=== PATIENT | male | born 1960 | race Caucasian/White ===

== ENCOUNTER 2019-01-20 12:59 | Inpatient (IN) | payer BC, OTHER ==
[~2019-01-20] VITALS: Ht 182.9 cm; Wt 112.9 kg
[2019-01-20 13:00] VITALS: BP 191/95
[2019-01-20 14:08] LABS: ABSOLUTE NEUTROPHILS 5.2 thou/uL (1.4-8.2); EOSINOPHILS 10.3 % (0.0-3.0); HEMATOCRIT 31.7 % (42.0-52.0); HEMOGLOBIN 11.1 gm/dL (14.0-18.0); MCH 31.7 pg (26.0-34.0); MCHC 35.1 g/dL (28.0-37.0); MCV 90.3 fL (80.0-100.0); PLATELET COUNT 280 thou/uL (150-400); POLYS 69.7 % (36.0-66.0); RBC 3.51 mil/uL (4.50-6.00); RDW 12.9 % (10.5-14.5); WBC 7.5 thou/uL (4.0-11.0)
[2019-01-20 14:15] LABS: CALCIUM 7.5 mg/dL (8.5-10.1); CREATININE 6.3 mg/dL (0.7-1.3)
[2019-01-20 14:21] LABS: ALBUMIN 2.2 g/dL (3.4-5.0); TOTAL BILIRUBIN 0.3 mg/dL (<0.1-1.0); TOTAL PROTEIN 5.6 g/dL (6.4-8.2)
[2019-01-20] MEDS ORDERED: BISOPROLOL FUMA10 MG PO (14:27)
[2019-01-20] MEDS ORDERED: TORSEMIDE20 MG PO (14:27)
[2019-01-20] MEDS ORDERED: SYNTHROID50 MCG PO (14:27)
[2019-01-20] MEDS ORDERED: PRAVACHOL40 MG PO (14:28)
[2019-01-20] MEDS ORDERED: POTASSIUM20 PO (14:28)
[2019-01-20] MEDS ORDERED: COZAAR 25 MG TA25 M1 PO (14:28)
[2019-01-20] MEDS ORDERED: CYCLOSPORINE PO (14:29)
[2019-01-20 14:55] VITALS: BP 186/98
[2019-01-20 16:15] VITALS: BP 172/97
[2019-01-20] MEDS ORDERED: DEMADEX20 MG (16:47)
[2019-01-20] MEDS ORDERED: DEMADEX20 MG PO (16:47)
[2019-01-20] MEDS ORDERED: COZAAR 50 MG TA50 M1 PO (16:48)
[2019-01-20] MEDS ORDERED: CYCLOSPORINE50 MG (16:49)
[2019-01-20 18:16] VITALS: BP 190/92
--- NOTE | 2019-01-20 18:27 | NUR ---
ASSUMED CARE AT 1700, SHIFT ASSESSMENT AND ADMISSION DONE, BP ELEVATED. DR PEPPER INFORMED, ORDER GIVEN FOR A DOSE OF LOSARTAN, ADMINSTERED. UP WITH STANDBY, USES URINAL. ON LASIX DRIP. WILL CONTINUE TO ASSESS AND ASSIST WITH ADLs NEEDED.
[2019-01-20 18:44] VITALS: BP 189/107
[2019-01-20 20:35] VITALS: BP 184/108
[2019-01-20 21:29] LABS: URINE BILIRUBIN NEGATIVE (Negative); URINE BLOOD 2+ (Negative); URINE CLARITY CLEAR; URINE COLOR YELLOW; URINE GLUCOSE-RANDOM* 2+ (Negative); URINE KETONES NEGATIVE (Negative); URINE LEUKOCYTES NEGATIVE (Negative); URINE NITRITE NEGATIVE (Negative); URINE PROTEIN (DIPSTICK) 3+ (Negative); URINE UROBILINOGEN 0.2 E.U./dl (0.2-1.0)
[2019-01-20 21:43] LABS: CASTS None Seen /LPF (None Seen); CRYSTALS None Seen /LPF (None Seen); SQUAMOUS 0-3 Few /LPF (0-3); URINE WBC None Seen /HPF (0-5)
[2019-01-20 21:44] LABS: BACTERIA 1-9 Few /HPF (None Seen); URINE RBC 0-2 Rare /HPF (0-2)
[2019-01-21 00:04] VITALS: BP 190/114
[2019-01-21 05:11] LABS: HEMATOCRIT 30.1 % (42.0-52.0); HEMOGLOBIN 10.4 gm/dL (14.0-18.0); MCH 31.6 pg (26.0-34.0); MCHC 34.5 g/dL (28.0-37.0); MCV 91.7 fL (80.0-100.0); RBC 3.29 mil/uL (4.50-6.00); RDW 13.4 % (10.5-14.5); WBC 5.5 thou/uL (4.0-11.0)
[2019-01-21 05:13] LABS: CALCIUM 7.7 mg/dL (8.5-10.1); CREATININE 6.4 mg/dL (0.7-1.3)
[2019-01-21 05:17] VITALS: BP 173/108
[2019-01-21 05:19] LABS: POTASSIUM 2.7 mmol/L (3.5-5.1)
--- NOTE | 2019-01-21 07:33 | NUR ---
Patient up ad elpidio with IV pole to bathroom. No SOB noted. Patient remains on room air. No nausea or vomiting reported. Patient remains swollen in bilateral lower extremities with 1+ to 2+ edema in ankles and feet. Nonpitting edema in lower extremities. Patient states that he feels swollen but not in pain, and that his extremities don't hurt. Lasix gtt remains infusing at 10 mg/hr. Patient's potassium came back 2.[address] Hilliard paged 3 times. Provider called back with orders given. Dr. Hilliard also updated on patients high blood pressures throughout the night and gave additional orders for the issue. Patient making partial progress toward plan of care goals at this time.
[2019-01-21 12:48] VITALS: BP 192/89
[2019-01-21 16:42] VITALS: BP 172/104
[2019-01-21] MEDS ORDERED: CHILDREN'S ASPI81 M1 PO (19:31)
--- NOTE | 2019-01-21 19:41 | NUR ---
PT DIURESISING WELL...LASIX GTT...BP REMAINS HIGH...MEDS ORDERED...
[2019-01-21 20:04] VITALS: BP 177/105
[2019-01-22] VITALS (10 sets, daily range): BP systolic 129–189; BP diastolic 74–114
--- NOTE | 2019-01-22 04:19 | NUR ---
PATIENT IS PROGRESSING IN HIS CARE PLAN. VITAL SIGNS STABLE WITH PATIENT HAVING NO COMPLAINTS OF PAIN OR NAUSEA. PATIENT IS FULLY ALERT AND ORIENTED AND ABLE TO CALL APPROPRIATELY FOR REQUESTS. UP AD CATRACIHTO THROUGHOUT SHIFT, PATIENT IS NOT A FALL RISK AND APPEARS STRONG AND BALANCED WHEN WALKING. PATIENT HAS BEEN KEPT NPO IN ANTICIPATION OF TODAYS POSSIBLE PROCEDURE. DOCTOR EVGENY CONTACTED EARLY IN SHIFT IN REGARDS TO LOW K+ AND NURSE IS TO MONITOR MORNING LABS FOR POSSIBLE REPLACEMENT. CONTINUE PLAN OF CARE.
[2019-01-22 05:28] LABS: HEMATOCRIT 29.4 % (42.0-52.0); HEMOGLOBIN 10.2 gm/dL (14.0-18.0); MCH 31.8 pg (26.0-34.0); MCHC 34.7 g/dL (28.0-37.0); MCV 91.6 fL (80.0-100.0); RBC 3.21 mil/uL (4.50-6.00); RDW 13.3 % (10.5-14.5); WBC 5.6 thou/uL (4.0-11.0)
[2019-01-22 05:39] LABS: ALBUMIN 1.9 g/dL (3.4-5.0); CALCIUM 7.9 mg/dL (8.5-10.1); CREATININE 6.3 mg/dL (0.7-1.3); PHOSPHORUS 6.1 mg/dL (2.5-4.9); POTASSIUM 3.1 mmol/L (3.5-5.1)
--- NOTE | 2019-01-22 14:33 | NUR ---
ASSESSMENT: CM REVIEWED CHART AND MET WITH PATIENT AT THE BEDSIDE. PT IS ALERT AND ORIENTED X4. PT WAS ADMITTED WITH HEAVENLY. PT IS ON LASIX GTT AND GOT A KIDNEY BIOPSY TODAY. PT REPORTS HE LIVES IN A HOUSE WITH HIS . PT REPORTS NO STEPS TO ENTER THE HOME OR ONCE INSIDE. PT REPORTS BEING FULLY INDEPENDENT WITH ADLS AND AMBULATION. PT DENIES HAVING HH IN THE PAST OR BEING TO A SNF. PT REPORTS HE HAS NO DME OR THE NEED FOR IT. CM DISCUSSED ROLE. PT DOES NOT ANTICIPATE HAVING ANY NEEDS AT DISCHARGE.
--- NOTE | 2019-01-22 18:21 | NUR ---
ASSUMED PATIENT CARE AT 0700. A/O X4. PLEASANT. PATIENT HAD LAFT KIDNEY BIOPSY TOLERATED WELL. BP STILL HIGH. DENIES PAIN. ON LASIX GTT. SLOWLY TOWARDS POC GOALS.
[2019-01-23] VITALS (7 sets, daily range): BP systolic 148–180; BP diastolic 81–103
--- NOTE | 2019-01-23 03:36 | NUR ---
PATIENT IS ALERT AND ORIENTED. PATIENT IS ON LASIX DRIP. POTASSIUM REPLACED. PATIENT UP AD CATRACHITO. PATIENTS LBM WAS THE 7TH. PATIENT IS NSR ON TELE. PATIENTS DENIES PAIN. PATIENT BIOPSY SITE INTACT. PATIENT IS RESTING COMFORTABLY IN BED. WCM.
[2019-01-23 05:24] LABS: HEMATOCRIT 35.2 % (42.0-52.0); HEMOGLOBIN 11.9 gm/dL (14.0-18.0); MCH 31.3 pg (26.0-34.0); MCHC 33.9 g/dL (28.0-37.0); MCV 92.5 fL (80.0-100.0); RBC 3.8 mil/uL (4.50-6.00); RDW 13.3 % (10.5-14.5); WBC 6.6 thou/uL (4.0-11.0)
[2019-01-23 05:31] LABS: ALBUMIN 2.4 g/dL (3.4-5.0); CALCIUM 7.6 mg/dL (8.5-10.1); CREATININE 5.9 mg/dL (0.7-1.3); PHOSPHORUS 5.5 mg/dL (2.5-4.9); POTASSIUM 3.4 mmol/L (3.5-5.1)
--- NOTE | 2019-01-23 07:23 | HC ---
[facility] [place] [address] CONSULTATION Name: DULCE SUH Room #: 363-P [facility] IN M.R.#: [id number] Admission: 01/20/19 ������������������ Attend Phys: Chino Hilliard MD, FAAF Discharge: ������������������ Date of : 60 Report #: [id number] THIS REPORT FOR: //name// CC: Chino Hilliard REASON FOR CONSULTATION: Chronic kidney disease, acute kidney injury. REASON FOR PRESENTATION: Swelling, failure of outpatient diuretic therapy. 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 He has chronic kidney disease with a baseline creatinine of around 3. He had suffered from long-term side effect of cyclosporine including hyperlipidemia, hypertension and attempt to wean him off has completely failed. 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 The one that was done with me about a year ago revealed no significant interstitial fibrosis. He had been gaining weight and reported to me in the clinic a couple of months ago that his edema has been getting worse and his blood pressure is out of control. We attempted to diurese him in an outpatient setting; however, this has failed. Thus, he presented for intravenous diuresis and further management of his lower extremity swelling along with addressing his worsening kidney function. As I have stated, his baseline creatinine is around 3. Most recently and as of yesterday, his creatinine was all the way up to 6.4. PAST MEDICAL HISTORY: 1. Hypertension. 2. Hyperlipidemia. 3. Membranous nephropathy. 4. Chronic kidney disease. 5. Gynecomastia related to spironolactone. 6. long-term immunosuppressive medication usage. MEDICATIONS: 1. Torsemide. 2. Losartan. 3. Cyclosporine. 4. Levothyroxine. 5. Pravastatin. 6. Potassium. SOCIAL HISTORY: He lives with his . No drug or alcohol abuse. ALLERGIES: LIPITOR. REVIEW OF SYSTEMS: GENERAL: Significant for weight gain. [facility] [address] [place] [address] CONSULTATION Name: DULCE SUH J Room #: 363-P [facility] IN M.R.#: [id number] Admission: 01/20/19 ������������������ Attend Phys: Chino Hilliard MD, FAAF Discharge: ������������������ Date of : 60 Report #: [id number] CARDIOVASCULAR: No chest pain; however, he does have dyspnea on exertion. PULMONARY: No cough or hemoptysis. GASTROINTESTINAL: No nausea or vomiting. GENITOURINARY: No frequency or urgency. SKIN: No rash or ulcerations. NEUROLOGICAL: No headache, no dizziness. FAMILY HISTORY: No known family history of nephrotic syndrome. PHYSICAL EXAMINATION: GENERAL: Alert, oriented, in no apparent distress. VITAL SIGNS: Blood pressure 178/96. He is afebrile. HEAD AND NECK: No jugular venous distention. CHEST: No crackles. CARDIOVASCULAR: No rub. ABDOMEN: Soft, nontender. LOWER EXTREMITIES: +3 edema. ASSESSMENT AND IMPRESSION: 1. Hypertension. 2. Acute kidney injury. 3. Nephrotic syndrome. 4. Long-term immune suppressive medication. PLAN: 1. I had a lengthy discussion with the patient regarding the worsening of his kidney function and edema. 2. As for now, he is agreeable to continue with the IV diuresis. 3. Fluid and salt restriction. 4. We will schedule the patient for a kidney biopsy in the morning given the significant worsening of his kidney function. ��������������������������������������������� <ELECTRONICALLY SIGNED> ���������������������������������������� By: Jerica Ryder MD ��������������������������������������������� 01/23/19 0723 [id number] Jerica Ryder MD /nt
--- NOTE | 2019-01-24 03:54 | NUR ---
PT MAKING SLOW PROGRESS TOWARDS GOALS. PT REPORTING THAT HE IS ONLY TAKING SIPS OF WATER. DID START THE NIGHT WITH HALF ONLY A HALF PITCHER OF WATER AND THERE APPEARS TO BE 1/4 REMAINING. NOTED UOP 1550ML, 227ML IV AND 240ML PO. ONLY C/O CONSTIPATION AND PT WAS REPORTEDLY GIVEN MIRALAX DURING THE DAY TIME. DOES STATE HE HAS BEEN PASSING GAS. AMBULATION ENCOURAGED DURING DAY TIME HOURS. PT IS WEARING BL SCD AND RECEIVING SUBCU HEPARIN PER ORDERS.
[2019-01-24 04:30] VITALS: BP 147/100
[2019-01-24 06:10] LABS: CALCIUM 7.9 mg/dL (8.5-10.1); CREATININE 5.7 mg/dL (0.7-1.3); PHOSPHORUS 5.1 mg/dL (2.5-4.9); POTASSIUM 3.2 mmol/L (3.5-5.1)
[2019-01-24 08:44] VITALS: BP 137/89
[2019-01-24 13:05] VITALS: BP 144/87
[2019-01-24 17:07] VITALS: BP 140/92
--- NOTE | 2019-01-24 18:45 | NUR ---
PATIENT MAKING GOOD PROGRESS TOWARDS DISCHARGE GOALS. HE AMBULATES AND PARTICIPATE IN CARE. NO COMPLAIN OF PAIN NOTED. RESPIRATIONS ARE NON LABORED. CONT ON LASIX DRIP. PLEASANT WITH CARE. WILL CONT WITH PLAN OF CARE.
[2019-01-24 20:20] VITALS: BP 150/93
[2019-01-25 04:12] LABS: CALCIUM 7.8 mg/dL (8.5-10.1); CREATININE 5.8 mg/dL (0.7-1.3); POTASSIUM 3.6 mmol/L (3.5-5.1)
[2019-01-25 04:13] LABS: ABSOLUTE NEUTROPHILS 2.4 thou/uL (1.4-8.2); BASOPHILS 1.5 % (0.0-2.0); EOSINOPHILS 11.1 % (0.0-3.0); HEMATOCRIT 30.6 % (42.0-52.0); HEMOGLOBIN 10.6 gm/dL (14.0-18.0); LYMPHOCYTES 21.9 % (24.0-44.0); MCH 32.2 pg (26.0-34.0); MCHC 34.7 g/dL (28.0-37.0); MCV 92.8 fL (80.0-100.0); MONOCYTES 7.9 % (1.0-8.0); PLATELET COUNT 241 thou/uL (150-400); POLYS 57.6 % (36.0-66.0); RBC 3.29 mil/uL (4.50-6.00); RDW 13.5 % (10.5-14.5); WBC 4.1 thou/uL (4.0-11.0)
[2019-01-25 04:20] VITALS: BP 143/92
--- NOTE | 2019-01-25 06:51 | NUR ---
PT AMBULATES WITHOUT ASSISTANCE AND IS CONSIDERED AD CATRACHITO TO BATHROOM. POC WITH IV LASIX DRIP AT 10ML/HR. SCD'S BEING WORN. PT ONLY REQUEST WAS FOR STOOL SOFTNER. PT SLEPT COMFORTABLY ALL EVENING. HOURLY ROUNDING.
[2019-01-25 07:35] VITALS: BP 132/85
--- NOTE | 2019-01-25 13:46 | NUR ---
SW reviewed chart and spoke with nursing. Pt remains on lasix gtt at this time. Pt is ambulating independently in his room. Plan is for pt to discharge home when medically stable. No SW needs identified at this time, but is available to assist should needs arise.
[2019-01-25 18:04] VITALS: BP 125/84
--- NOTE | 2019-01-25 19:45 | NUR ---
CONT ON LASIC DRIP AND URINATES IN BATHROOM. DAILY WEIGHTS. HE IS ALERT ORIENTED X4. PLEASANT. WILL CONT WITH PLAN OF CARE.
[2019-01-25 20:01] VITALS: BP 136/81
[2019-01-25 23:53] VITALS: BP 132/77
[2019-01-26] VITALS (9 sets, daily range): BP systolic 125–132; BP diastolic 60–70
--- NOTE | 2019-01-26 06:41 | NUR ---
ASSUMED PT CARE AROUND 1900. A&OX4. DENIES ANY PAIN OR SOA. PT SLEPT MOST OF THE NIGHT. RESP EVEN AND UNLABORED. UP AD CATRACHITO AROUND THE ROOM. LASIX GTT INFUSING ORDERED. VSS. PROGRESSING SLOWLY TOWARD POC GOALS. WILL CONTINUE TO MONITOR FURTHER.
[2019-01-26 10:22] LABS: ALBUMIN 2.1 g/dL (3.4-5.0); CALCIUM 7.9 mg/dL (8.5-10.1); CREATININE 5.9 mg/dL (0.7-1.3); PHOSPHORUS 4.9 mg/dL (2.5-4.9); POTASSIUM 3.8 mmol/L (3.5-5.1)
[2019-01-26] MEDS ORDERED: SYNTHROID75 MCG PO (12:41)
[2019-01-26] MEDS ORDERED: METOLAZONE 5 MG5 MG PO (12:41)
[2019-01-26] MEDS ORDERED: TORSEMIDE20 MG PO (12:41)
[2019-01-26] MEDS ORDERED: CLONIDINE HCL0.3 M3 PO (12:41)
--- NOTE | 2019-01-26 17:06 | PATH ---
[facility] [address] [place] [address] PATHOLOGY RPT PROCEDURE Name: DULCE SUH Room #: 363-P [facility] IN M.R.#: [id number] ������������������ Admission: 01/20/19 ������������������ Date of : 60 Discharge: Report #: [id number] Path Case #: [id number] [facility] Accession Number: [id number] . 01 Material submitted: . renal pelvis - LT RENAL BX. Modifiers: right . 01 Clinical history: . Swelling of legs, acute on chronic renal failure . 02 Diagnosis: Special studies report received from [facility], [id number] [place] [address], [place] [address], on case [id number], labeled with their number [id number], dated 01/23/2019. . Specimen submitted: By Jerica Ryder MD For Kidney, biopsy . DIAGNOSIS: . Limited Biopsy - Predominately Renal Medullar. . 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 . Acute Tubular Injury. . Global Glomerulosclerosis (09/17). . Arteriosclerosis, Mild. . 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 . Gross Description: Received from [facility] via [employer] ([place], [place]) are two specimen bottles; one bottle contains formalin and the other contains Aram's fixative. The bottles are labeled with the patient's name (Dulce Suh). . Received in formalin are three pieces of saenz tissue measuring 1.7 x 0.1 x 0.1 cm (fatty ends, dissected), 0.5 x 0.1 x 0.1 cm (fatty ends), and one approximately 1.0 x 0.1 x 0.1 cm (curled, fatty ends). Two pieces are submitted for electron microscopy and the remainder of the tissue is submitted in its entirety for light microscopy. . [address] [address] PATHOLOGY RPT PROCEDURE Name: DULCE SUH Room #: 363-P ADM IN M.R.#: [id number] ������������������ Admission: 01/20/19 ������������������ Date of : 60 Discharge: Report #: [id number] Path Case #: [id number] Received in Aram's fixative are two pieces of bloody tissue measuring 1.0 x 0.1 x 0.1 cm (fatty ends) and 1.6 x 0.1 x 0.1 cm (fatty ends). The specimen is submitted in its entirety for immunofluorescence microscopy. . Microscopic Description: LIGHT MICROSCOPY: . Multiple cores of renal parenchyma are present for evaluation represented almost entirely by medulla. No significant renal cortex is present. There is a single globally sclerotic glomerulus and two partially intact and detached glomeruli. The glomeruli show prominent thickening of the capillary loops with mottling on silver stain. There is mesangial matrix expansion. There is no definitive endocapillary hypercellularity, fibrinoid necrosis, or crescent formation. There is diffuse mild interstitial edema with focal interstitial. Foam cells. There is a minimal interstitial mononuclear inflammatory infiltrate. The tubular epithelium of the outer medullar and corticomedullary junction shows cytoplasmic swelling and vacuolization with reactive nuclear changes. There are no atypical tubular casts. There is minimal arteriolar hyalinosis. Arteries show mild intimal fibrosis. There is no arteritis present. A Congo red stain for amyloid is negative. Toluidine blue-stained sections prepared for electron microscopy show renal medulla only. . Material from the patient's previous biopsies ([id number] and [id number]) was reviewed concurrently. . Standard of care requirements for proper analysis of renal biopsies mandates serial sections, and PAS, Angelo silver, trichrome and SMMT stains at multiple levels. PAS stains are used to evaluate various aspects of the glomerular, tubular, and vascular basement membranes. Angelo silver stains are used to evaluate thickening, reduplication, "spiking" or "bubbling" of the glomerular basement membrane. Toluidine blue stained sections highlight glomerular basement membranes and demonstrates unusual types of deposits. It also reveals details of tubular epithelial cells and aids in the analysis of vascular lesions. Marcell trichrome stains are used to evaluate interstitial fibrosis and basement membrane deposits. The SMMT stain helps evaluate basement membrane changes, immune deposits and tubulointerstitial scarring. Controls are routinely run on all special stains and are verified for acceptability. A review of the technical quality of routine slides is made before results are reported. . . IMMUNOFLUORESCENCE: Two cores of renal medulla are present for evaluation. The sections are stained for IgG, IgM, IgA, C3, C1q, albumin, fibrinogen, and kappa and lambda light chains. No cortex or glomeruli are present. Lozano and lambda stain equally throughout the tubulointerstitium [address] [address] PATHOLOGY RPT PROCEDURE Name: DULCE SUH Room #: 363-P ADM IN M.R.#: [id number] ������������������ Admission: 01/20/19 ������������������ Date of : 60 Discharge: Report #: [id number] Path Case #: [id number] . Immunofluorescence for IgG and kappa and lambda light chains is performed on the paraffin-embedded tissue containing two intact glomeruli. The glomeruli show global granular capillary loop staining by IgG (3+) and kappa (3+) and lambda (3+) light chains. Lozano and lambda stain equally throughout the tubulointerstitium. . Positive and negative controls are run on all immunofluorescent stains and are verified for acceptability before results are reported. Internal antigens serve as positive controls. . ELECTRON MICROSCOPY: Two blocks are prepared. No intact glomeruli are available for ultrastructural examination. . Special procedures including immunofluorescence and electron microscopy correlate with the light microscopy findings. . Note: Some of the tests reported here may have been developed and performance characteristics determined by [facility]. They have not been cleared or approved by the U.S. Food and Drug Administration (FDA). The FDA does not require this test to go through premarket FDA review. This test is used for clinical purposes. It should not be regarded as investigational or for research. [facility] is certified under the Clinical Laboratory Improvement Amendments of 1988 (CLIA) as qualified to perform high complexity clinical laboratory testing. . Physician/Physician's office called on 01/25/2019 at 3:45 PM Central. . *I have reviewed the clinical history, the pertinent gross findings, all microscopic materials, discussed the case with the clinician when appropriate, and have rendered the final diagnosis. . . Final Diagnosis performed by Sabrina Kenyon M.D. Electronically signed 01/25/2019 5:44:20 PM . . A complete copy of the report is on file. . Professional and technical services performed by [facility] at [address], [place] [address], [place], [address]. . (AMJ 01/26/2019) . AZJ/01/26/[address] [address] PATHOLOGY RPT PROCEDURE Name: DULCE SUH Room #: 363-P [facility] IN ..#: [id number] ������������������ Admission: 01/20/19 ������������������ Date of : 60 Discharge: Report #: [id number] Path Case #: [id number] . 02 Electronically signed: . Jeanne Clements MD, Pathologist NPI- [id number] . 01 Gross description: . The specimen is received in formalin, labeled "Dulce Suh left renal biopsy general". Received are three needle cores of pale saenz soft tissue ranging in length from 0.7 to 1.2 cm, with each measuring 0.1 cm in diameter. The specimen is forwarded to an outside laboratory for further processing. . Also received is a container of Aram's fixative, labeled "Dulce Suh left renal biopsy general". Received are three needle cores of pale saenz soft tissue ranging in length from 0.5 to 1.5 cm, with each measuring 0.1 cm in diameter. The specimen is forwarded to an outside laboratory for further processing. (CAA; 01/22/2019) QAC/QAC . 02 Pathologist provided ICD-10: N17.9, N26.9, N05.2 . 02 CPT . 913641 Specimen Comment: A courtesy copy of this report has been sent to Specimen Comment: [phone], , . Specimen Comment: Report sent to ,DR PEPPER / DR RYDER Performed at: [address], [place], [place] [id number] MD Miguel Angel Amezquita MD Phone: [phone] Performed at: [address] [id number] MD Jeanne Clements MD Phone: [phone]
--- NOTE | 2019-01-26 18:09 | NUR ---
PT DISCHARGED TO HOME WITH SELF CARE...VSS..RX GIVEN...WILL FOLLOW UP WITH DR COATES FOR LABS IN 1 WEEK AND FOLLOW UP IN [address] COATES FOR LABs and offive visit on march 02 at 2;30
== END 2019-01-26 18:15 | disposition home or self-care (01) | DRG 699 ==
LOC: ER 12:59 → 3W 14:29 → EROBS 14:29 → 3W 16:27
PROVIDERS: Hospitalist; Internal Medicine; Physician Assistant; ADMIT Family Medicine
DX: N04.2 Nephrotic syndrome with diffuse membranous glomerulonephritis (principal); I13.0 Hypertensive heart and chronic kidney disease with heart failure and stage 1 through stage 4 chronic kidney disease, or unspecified chronic kidney disease; E78.00 Pure hypercholesterolemia, unspecified; N17.9 Acute kidney failure, unspecified; E03.9 Hypothyroidism, unspecified; N18.9 Chronic kidney disease, unspecified; E78.5 Hyperlipidemia, unspecified; E87.6 Hypokalemia; D64.9 Anemia, unspecified; K59.00 Constipation, unspecified; Z88.8 Allergy status to other drugs, medicaments and biological substances; Z79.899 Other long term (current) drug therapy
CPT/HCPCS: 10879

== ENCOUNTER 2020-10-26 10:47 | Inpatient (IN) | payer BC, OTHER ==
[2020-10-26] VITALS (24 sets, daily range): BP systolic 120–166; BP diastolic 71–104
[~2020-10-26] VITALS: Ht 188 cm; Wt 103.0 kg
--- NOTE | ~2020-10-26 | HC ---
[facility] [place] [address] CONSULTATION Name: DULCE SUH Room #: 240-P ADM IN M.R.#: [id number] Admission: 10/26/20 Attend Phys: Chino Hilliard MD, FAA Discharge: Date of : 60 Report #: [id number] THIS REPORT FOR: cc: Chino Hilliard MD FAA FACE Chino Hilliard MD FAA FACE Jerica Ryder MD ~ DATE OF SERVICE: 10/27/2020 REASON FOR PRESENTATION: Weakness, lethargy, mental status changes. REASON FOR CONSULTATION: Acute kidney injury on top of chronic kidney disease. HISTORY OF PRESENT ILLNESS: This is obtained from the and the medical record. The patient is currently very lethargic. He is a 59-year-old with history of membranous nephropathy, chronic kidney disease with a baseline creatinine of around 4. He received few courses of rituximab for his membranous nephropathy few months ago. He has not been feeling well for the last few days and had significant nausea, vomiting, abdominal pain, with very poor oral intake. He presented to further evaluate and was found to have COVID-19 infection. He has significant lobar pneumonia. He also had significant lab abnormalities with acute kidney injury, anion gap acidosis, elevated lipase. I was consulted to manage his acute kidney injury. PAST MEDICAL HISTORY: Extensive and includes the followin. Hypertension. 2. Hyperlipidemia. 3. Membranous nephropathy, status post rituximab usage. Long-term immunosuppressive medication usage with cyclosporine in the past. MEDICATIONS: 1. Torsemide. 2. Losartan. 3. Aspirin. 4. Pravastatin. 5. Levothyroxine. He is not taking cyclosporine anymore. REVIEW OF SYSTEMS: Currently unobtainable given the patient's current mental status. ALLERGIES: LISTED LATEX. FAMILY HISTORY: Hypertension. SOCIAL HISTORY: He continued to work few months ago from home for ____ company. [facility] [address] [place] [address] CONSULTATION Name: DULCE SUH Room #: 240-P [facility] IN ..#: [id number] Admission: 10/26/20 Attend Phys: Chino Hilliard MD, FAAF Discharge: Date of : 60 Report #: [id number] He is . PHYSICAL EXAMINATION: GENERAL: Confused, lethargic. VITAL SIGNS: Blood pressure 135/83. HEAD AND NECK: No jugular venous distention. CHEST: Crackles bilaterally. CARDIOVASCULAR: No rub. ABDOMEN: Soft. EXTREMITIES: Lower extremities, no edema. LABORATORY DATA: Sodium from yesterday 140, BUN was 177, creatinine was 19. Lipase is down from 2467 to 2166. Abdominal ultrasound revealed no acute issues. Chest x-ray (lobar pneumonia). IMPRESSION AND PLAN: 1. Acute kidney injury. 2. Chronic kidney disease. 3. Membranous nephropathy with long-term immunosuppressive medications, currently undergoing rituximab infusion few months ago. This was held due to the current COVID-19 status. 4. Anion-gap acidosis. 5. Elevated lipase. 6. Emergent hemodialysis was done for the patient yesterday. Second dialysis session will be done today and next dialysis session will be done tomorrow. 7. Continue current therapy for his COVID-19. 8. Discontinue all blood pressure medication. 9. Monitor renal function, daily electrolytes. We will continue to follow. By: 0748 0834 Jerica Ryder MD /nt
[~2020-10-26 10:47] MED LIST: BISOPROLOL FUMA10 MG PO; CHILDREN'S ASPI81 M1 PO; CLONIDINE HCL0.3 M3 PO; COZAAR 25 MG TA25 M1 PO; COZAAR 50 MG TA50 M1 PO; CYCLOSPORINE PO; CYCLOSPORINE50 MG; DEMADEX20 MG; DEMADEX20 MG PO; METOLAZONE 5 MG5 MG PO; POTASSIUM20 PO; PRAVACHOL40 MG PO; SYNTHROID50 MCG PO; SYNTHROID75 MCG PO; TORSEMIDE20 MG PO
[2020-10-26 11:17] LABS: ABSOLUTE NEUTROPHILS 11.8 thou/uL (1.4-8.2); BASOPHILS 0.3 % (0.0-2.0); EOSINOPHILS 0.1 % (0.0-3.0); HEMATOCRIT 33.7 % (42.0-52.0); HEMOGLOBIN 11.3 gm/dL (14.0-18.0); LYMPHOCYTES 4.1 % (24.0-44.0); MCH 31.7 pg (26.0-34.0); MCHC 33.4 g/dL (28.0-37.0); MONOCYTES 3.1 % (1.0-8.0); PLATELET COUNT 348 thou/uL (150-400); POLYS 92.4 % (36.0-66.0); RBC 3.55 mil/uL (4.50-6.00); RDW 13.8 % (10.5-14.5); WBC 12.8 thou/uL (4.0-11.0)
[2020-10-26 11:26] LABS: CALCIUM 8.4 mg/dL (8.5-10.1); CREATININE 19.8 mg/dL (0.7-1.3)
[2020-10-26 11:29] LABS: ALBUMIN 2.5 g/dL (3.4-5.0); TOTAL BILIRUBIN 0.5 mg/dL (0.2-1.0); TOTAL PROTEIN 7.3 g/dL (6.4-8.2)
[2020-10-26 11:32] LABS: DIRECT BILIRUBIN 0.1 mg/dL (<0.1-0.2)
--- NOTE | 2020-10-26 11:52 | NUR ---
RETURNED TO ROOM FROM CT
[2020-10-26 12:01] LABS: HCO3 10.9 mmol/L (22.0-26.0); PCO2 26.4 mmHg (35.0-45.0); PO2 67.5 mmHg (80.0-100.0); sO2 90.6 % (92.0-98.0)
[2020-10-26 12:02] LABS: pH 7.235 (7.360-7.450)
[2020-10-26 13:23] LABS: CALCIUM 7.6 mg/dL (8.5-10.1); POTASSIUM 4.1 mmol/L (3.5-5.1)
[2020-10-26 13:29] LABS: APTT 30.9 Seconds (24.5-32.8); D-DIMER 3.44 ug/mLFEU (0.19-0.50); INR 1.2; PROTIME 13.2 Seconds (9.3-11.4)
--- NOTE | 2020-10-26 14:48 | NUR ---
RETURNED FROM IR. NO CHANGES STABLE AT THIS TIME
--- NOTE | 2020-10-26 15:57 | EKG ---
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 : 1960 Requested By: Reese White Order Number: [id number] MD: Chris Powers Measurements Intervals [place] Rate: 127 P: TN: QRS: -52 QRSD: 149 T: 24 QT: 322 QTc: 469 Interpretive Statements Significant artifact, suspect sinus tachycardia Nonspecific IVCD with LAD Inferior infarct, old Lateral leads are also involved No previous ECG available for comparison Electronically Signed On 10-26-2020 15:57:09 ADVERTISING STRATEGIST by Chris Powers [email or web address] <ELECTRONICALLY SIGNED> By: Chris Powers MD, [facility] 10/26/20 1557 D: [id number] 26 Chris Powers MD, FACC /EPI
--- NOTE | 2020-10-26 18:02 | NUR ---
Per Dr. Hilliard, original covid positive test was October 07.
--- NOTE | 2020-10-26 19:40 | NUR ---
10/26/20 PATIENT ADMIT FROM ICU AT 1800. ARRIVED ON 4 L O2 VIA NASAL CANNULA. PIV IN PLACE ON RIGHT ARM. TEMP HD CATH IN PLACE RIGHT IJ. DR. PEPPER AT BEDSIDE, CONSULTS PLACED TO ID AND CRITICAL CARE. PATIENT ABLE TO APPROPRIATELY ANSWER ORIENTATION QUESTIONS BUT LETHARGIC, FALLING ASLEEP WHILE TALKING. HEMODIALYSIS STARTED BY HD NURSE. PATIENT IN AFIB ON NETWORK DEVELOPMENT COORDINATOR. PATIENT BELONGINGS INCLUDE; SHIRT, PANTS, SOCKS, SHOES. WILL CONTINUE TO MONITOR.
--- NOTE | 2020-10-26 23:27 | NUR ---
REPORT RECEIVED. PATIENT GETTING HD. A/O TO PERSON. DENIES SOA, PAIN, N/V. CALLED DR AKINS AFTER DIALYSIS. ORDER TO STOP FLUID IV GIVEN. PATIENT REMAINS RESTLESS IN BED. DR WILLIS CALLED AND UPDATED. DR PEPPER PAGED AND WAITING FOR CALL BACK. PT CURRENTLY IN BED. REMAINS RESTLESS. WILL KEEP MONITORING
[2020-10-27] VITALS (85 sets, daily range): BP systolic 107–172; BP diastolic 64–117
[2020-10-27 03:17] LABS: URINE BILIRUBIN NEGATIVE (Negative); URINE BLOOD 3+ (Negative); URINE CLARITY SL CLOUDY; URINE COLOR YELLOW; URINE GLUCOSE-RANDOM* 1+ (Negative); URINE KETONES NEGATIVE (Negative); URINE LEUKOCYTES-REFLEX TRACE (Negative); URINE NITRITE-REFLEX NEGATIVE (Negative); URINE PROTEIN (DIPSTICK) 3+ (Negative); URINE SPECIFIC GRAVITY >= 1.030 (1.005-1.035); URINE UROBILINOGEN 0.2 E.U./dl (0.2-1.0)
[2020-10-27 03:26] LABS: MUCUS 0-3 Light strn/LPF (None Seen); SQUAMOUS None Seen /LPF (0-3)
[2020-10-27 03:27] LABS: AMORPHOUS URATES Moderate /LPF (None Seen); BACTERIA-REFLEX None Seen /HPF (None Seen); CRYSTALS None Seen /LPF (None Seen); HYALINE CASTS 0-3 Few /LPF (None Seen); URINE RBC 3-10 Few /HPF (0-2); URINE WBC-REFLEX 0-5 Rare /HPF (0-5)
[2020-10-27 04:01] LABS: ALBUMIN 2.2 g/dL (3.4-5.0); POTASSIUM 3.6 mmol/L (3.5-5.1); TOTAL BILIRUBIN 0.6 mg/dL (0.2-1.0)
[2020-10-27 04:05] LABS: CREATININE 12.6 mg/dL (0.7-1.3)
[2020-10-27 04:23] LABS: ABSOLUTE NEUTROPHILS 9.9 thou/uL (1.4-8.2); BASOPHILS 0.1 % (0.0-2.0); HEMATOCRIT 27.7 % (42.0-52.0); HEMOGLOBIN 9.5 gm/dL (14.0-18.0); LYMPHOCYTES 2.6 % (24.0-44.0); MCH 31.9 pg (26.0-34.0); MCHC 34.3 g/dL (28.0-37.0); MCV 93.1 fL (80.0-100.0); PLATELET COUNT 274 thou/uL (150-400); POLYS 95.3 % (36.0-66.0); RBC 2.98 mil/uL (4.50-6.00); RDW 13.5 % (10.5-14.5); WBC 10.4 thou/uL (4.0-11.0)
[2020-10-27 07:13] LABS: BE(vivo) -6.5 mmol/L (-2 to +3); HCO3 17.1 mmol/L (22.0-26.0); PCO2 27.9 mmHg (35.0-45.0); PO2 77.8 mmHg (80.0-100.0); pH 7.405 (7.360-7.450); sO2 95.8 % (92.0-98.0)
--- NOTE | 2020-10-27 13:20 | NUR ---
ASSESSMENT: CM REVIEWED CHART AND SPOKE WITH PTS SPOUSE KUNAL. PT TESTED POSITIVE FOR COVID 19 ON 10/07/20. SINCE THEN PT HAS BECOME MORE ILL, EXTREMELY DEBILITATED, MINIMALLY VERBAL, AND INCREASED COUGH PER REPORT. CM SPOKE WITH TO GATHER MORE INFORMATION. 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 SHE REPORTS THEY LIVE IN A SINGLE STORY HOME WITH NO STEPS TO ENTER. PT IS NORMALLY INDEPENDENT WITH ADLS AND AMBULATION. PT DOES NOT HAVE OXYGEN AT HOME AND IS CURRENTLY ON 4L. PT IS A NONDIALYSIS PATIENT BUT HAS HX OF RENAL DISEASE. HD WAS INITIATED HERE AT THIS TIME. PT IS ON IV ANBX AND CORTICOSTEROIDS. CM WILL CONTINUE TO FOLLOW TO ASSIST NEEDED.
--- NOTE | 2020-10-27 13:23 | NUR ---
PT IS PROGRESSING TOWARDS DISCHARGE, PT SEEN BY /DR.AL ASHLEY/ PT IS RECEIVING DIALYSIS TODAY, NO FLUIDS WILL BE TAKEN OFF THIS TIME. PT IS MORE ALERT PER NOC RN, PT IS AROUSABLE, IS WITH IT AOX4 HOEVER HE IS VERY DROWSY AND WILL FALL ASLEEP IN MID CONVO. NO SPECIFIC CONERNS/GOALS FROM THE PT TODAY. PT WAS ABLE TO TOLERATE PO APPLE JUICE BUT DID HAVE TO TAKE PILLS SLOWLY AND DID HAVE DIFFICULT TIME SWALLOWING/CATCHING UP TO HIS BREATH. WAS SEEN DESATTING TO LOW 90s AT A POINT. STILL ON 4L/NC, ANION GAP CLOSING PER AM SHIFT LABS, TEMPERATURE OF 98 ORAL SO FAR TODAY
--- NOTE | 2020-10-27 18:56 | HC ---
[facility] [place] [address] CONSULTATION Name: DULCE SUH Room #: 240-P ADM IN M.R.#: [id number] Admission: 10/26/20 Attend Phys: Chino Hililard MD, FAA Discharge: Date of : 60 Report #: [id number] THIS REPORT FOR: cc: Chino Hilliard MD [facility] Chino Hilliard MD [facility] Alexander Pate MD ~ DATE OF SERVICE: 10/26/2020 INFECTIOUS DISEASE CONSULTATION REASON FOR CONSULTATION: COVID-19 pneumonia. HISTORY OF PRESENT ILLNESS: The patient is 59 years old with membranous nephropathy and chronic renal failure, diagnosed with COVID-19 on 10/07/2020. He has had progressive shortness of breath over the last several days. He developed laryngitis and generalized weakness. He has had some odynophagia. He was delirious. Unable to give reasonable history. Review of medical record and discussion with nursing staff. On presentation to the Emergency Room, he was found to be in acute renal failure with a creatinine of 19 along with acute pancreatitis and lipase over 1999. He has required oxygen, now at 4 liters per nasal cannula. He has had intermittent nonproductive cough. Denies any alcohol use. He has been on cyclosporine for his membranous nephropathy. REVIEW OF SYSTEMS: A 14-point review of system was negative other than what has been described above. ALLERGIES: LASIX, ATORVASTATIN. MEDICATIONS: As noted on his MAR, having started on azithromycin, ceftriaxone. He is on clonidine, torsemide, metolazone, levothyroxine, losartan, cyclosporine, aspirin, bisoprolol, pravastatin, potassium. FAMILY HISTORY: No tuberculosis reported. SOCIAL HISTORY: Nonsmoker, with no significant alcohol intake. . PAST MEDICAL HISTORY: Hypertension, hyperlipidemia, membranous nephropathy, chronic kidney disease, gynecomastia. PHYSICAL EXAMINATION: GENERAL: Afebrile, hemodynamically stable, recently gotten off dialysis, has a right IJ temporary dialysis catheter in place. Obese. Hoarse voice. SKIN: Without rash or decubitus. No palpable adenopathy. EYES: Without scleral icterus. MOUTH: Without mucositis. [facility] [address] [place] [address] CONSULTATION Name: DULCE SUH Room #: 240-P ADM IN M.R.#: [id number] Admission: 10/26/20 Attend Phys: Chino Hilliard MD, FAAF Discharge: Date of : 60 Report #: [id number] NECK: Supple. Right IJ catheter without drainage. LUNGS: Clear anteriorly with coarse breath sounds posteriorly. HEART: Regular, without murmur, gallop or rub. ABDOMEN: Mildly distended, nontender, no hepatosplenomegaly or mass. GENITOURINARY: External genitalia without lesion or mass with indwelling Wiseman catheter. He was awake, but confused, able to move all extremities. No clubbing or cyanosis. LABORATORY STUDIES: Reviewed. Microbiology reviewed. Abdominal ultrasound reviewed. CT chest, abdomen and pelvis reviewed. IMPRESSION: 1. COVID-19 infection, now with pneumonia, severe acute respiratory syndrome, and respiratory failure. 2. [id number] renal failure, now requiring hemodialysis. 3. Pancreatitis, likely more related to his acute renal failure. 4. Delirium. RECOMMENDATIONS: We will continue IV antibiotic therapy, pending culture results. We will continue combination antiviral therapy for COVID-19. The patient is at high risk for further complications. He has underlying membranous nephropathy, now with acute exacerbation. Follow pancreatic enzymes as the patient dialyzes acutely. <ELECTRONICALLY SIGNED> By: Alexander Pate MD 10/27/20 [id number] Alexander Pate MD /nt
[2020-10-27 22:06] LABS: HEP B SURFACE Ab(ANTI-HBS Non Reactive (()); HEPATITIS B SURFACE AG Negative (Negative)
[2020-10-28] VITALS (14 sets, daily range): BP systolic 116–146; BP diastolic 79–97
[2020-10-28 01:35] LABS: ABSOLUTE NEUTROPHILS 8.1 thou/uL (1.4-8.2); BASOPHILS 0.5 % (0.0-2.0); HEMATOCRIT 28.2 % (42.0-52.0); HEMOGLOBIN 9.5 gm/dL (14.0-18.0); LYMPHOCYTES 1.4 % (24.0-44.0); MCH 31.5 pg (26.0-34.0); MCHC 33.8 g/dL (28.0-37.0); MCV 93.4 fL (80.0-100.0); MONOCYTES 1.4 % (1.0-8.0); PLATELET COUNT 248 thou/uL (150-400); POLYS 96.7 % (36.0-66.0); RBC 3.01 mil/uL (4.50-6.00); RDW 13.4 % (10.5-14.5); WBC 8.4 thou/uL (4.0-11.0)
[2020-10-28 01:51] LABS: ALBUMIN 2.1 g/dL (3.4-5.0); CALCIUM 7.4 mg/dL (8.5-10.1); DIRECT BILIRUBIN 0.3 mg/dL (<0.1-0.2); PHOSPHORUS 7.5 mg/dL (2.5-4.9); POTASSIUM 3.7 mmol/L (3.5-5.1); TOTAL BILIRUBIN 0.6 mg/dL (0.2-1.0); TOTAL PROTEIN 5.7 g/dL (6.4-8.2)
[2020-10-28 02:05] LABS: INR 1.3; PROTIME 14.7 Seconds (9.3-11.4)
--- NOTE | 2020-10-28 10:17 | NUR ---
PT'S CHEST XRAY STATED WORSENING, IMAGING WELL INCREASE IN SIZE OF THE HILUM/R ARTRIA. RN WILL COMMUNICATE THIS TO THE HOSPITALIST FOR THIS PT. PT IS BEING DIALYZED. HAD COME AND SAW THE PT. CURRENTLY NOISE ABATEMENT ENGINEER BY THIS RN'S SIDE. PT'S BLOOD PRESSURE ARE NORMAL. O2 IS SET TO 2L/NC AT 95% W/ 100 BPM. INCENTIVE SPIROMETRY TEACHING WAS DONE IN THE MORNING BUT RN WILL REEDUCATE AFTER PT'S DONE DIALYZING. MORNING MEDS WERE HELD UNTIL POST DIALYSIS WHICH WAS RECOMMENDED BY THE NOISE ABATEMENT ENGINEER. RN CONTINUING TO MONITOR AND WILL UPDATE NEEDED
[2020-10-29] VITALS (19 sets, daily range): BP systolic 124–157; BP diastolic 72–103
[2020-10-29 04:30] LABS: CALCIUM 7.6 mg/dL (8.5-10.1); DIRECT BILIRUBIN 0.2 mg/dL (<0.1-0.2); PHOSPHORUS 8.6 mg/dL (2.6-4.7); POTASSIUM 4.1 mmol/L (3.5-5.1); TOTAL BILIRUBIN 0.6 mg/dL (0.2-1.0); TOTAL PROTEIN 5.4 g/dL (6.4-8.2)
[2020-10-29 04:32] LABS: CREATININE 7.7 mg/dL (0.7-1.3)
--- NOTE | 2020-10-29 06:00 | NUR ---
VSS SINUS RHYTHM. O2 SAT 95 % ON 2 L NC. REMAINS VERY QUIET. ONLY REQUEST IS WATER. 4 CC UO THIS SHIFT. DIALYSIS CATH INTACT. DR PEPPER PAGED TO CHECK IF PT COULD TX TO 3 WEST. REMAINS IN COVID ENHANSED PRECAUTIONS. WILL CONT TO MONITOR
--- NOTE | 2020-10-29 10:42 | NUR ---
PT WAS SEEN TODAY BY EMPLOYMENT SERVICE SPECIALIST, RN DISCUSSED Callie BLACK REGARDING STATUS OF PT, (RENAL) STOPPED BY EARLIER AND RN DISCUSSED THE DISPOSITION STATUS TO WHICH REPLIED THAT ICU STATUS IS STILL WARRANTED FOR THE PT. LYNDSEY BLACK VERBALIZED UNDERSTANDING, ESPECIALLY SO WHEN 2 MDs REQUEST STATUS. GOAL WAS IDENTIFIED WITH THE PT TODAY WITH IT BEING IS X10/HR EVERY HOUR NO EXCEPTIONS WHILE AWAKE WELL INCREASING ORAL INTAKE. EDWIN RN WAS CONCERNED ABOUT BLOOD SUGAR LEVEL AND WANTED TO DAY RN TO REACH OUT TO TO DETERMINE WHETHER THAT THERAPY WOULD BE APPROPERIATE. PT IS ON CORTICOSTEROID. WAS REACHED OUT TO EARLIER THIS MORNING BY [facility] RN BUT NO CALL WAS RECEIVED. RN WILL TRY AGAIN AFTER 12 IF NO REPLY HEARD BY THEN
[2020-10-30] VITALS (44 sets, daily range): BP systolic 124–156; BP diastolic 84–110
[2020-10-30 04:52] LABS: CALCIUM 7.3 mg/dL (8.5-10.1); DIRECT BILIRUBIN 0.2 mg/dL (<0.1-0.2); PHOSPHORUS 11.2 mg/dL (2.6-4.7); POTASSIUM 4.2 mmol/L (3.5-5.1); TOTAL BILIRUBIN 0.5 mg/dL (0.2-1.0); TOTAL PROTEIN 5.4 g/dL (6.4-8.2)
[2020-10-30 04:55] LABS: CREATININE 10.1 mg/dL (0.7-1.3)
--- NOTE | 2020-10-30 10:00 | NUR ---
chart review. unable to visit with yovanny l[facility] on ppe, covid +, requiring o2 per nc. noted dialysis tx today. will cont following as needed for dc needs.
--- NOTE | 2020-10-30 13:02 | H ---
[facility] [place] [address] HISTORY AND PHYSICAL Name: DULCE SUH Room #: 240-P ADM IN M.R.#: [id number] Admission: 10/26/20 Attend Phys: Chino Hilliard MD, FAAF Discharge: Date of : 60 Report #: [id number] THIS REPORT FOR: cc: Chino Hilliard MD FAAFP FACEP Chino Hilliard MD FAAFP FACEP Chino Hilliard MD FAAFP FACEP ~ DATE OF SERVICE: 10/26/2020 CHIEF COMPLAINT: COVID pneumonia, acute on chronic renal failure, acute pancreatitis with elevated lipase. HISTORY OF PRESENT ILLNESS: The patient is a 59-year-old white male, patient of mine for years, has membranous nephropathy with chronic renal failure, nondialysis patient and has been evaluated this past year for possible kidney transplant at . He was diagnosed with COVID-19 on 10/07/2020. Over the past 2 days, he became more severely ill, extremely debilitated and minimally verbal with frequent cough and some hoarseness of voice, difficulty swallowing and eating. He was evaluated in the Emergency Department at [facility]. COVID-19 test was positive. He has seay-lobar pneumonia, hypoxia, acute on chronic renal failure, acute pancreatitis with a lipase of 2000. He is tachypneic but holding O2 sats about 93% on 3 liters oxygen by nasal cannula. He is admitted to the Intensive Care Unit. He is alert, but minimally verbal with a hoarse voice and difficulty pronating. PAST MEDICAL HISTORY: Hypertension, hyperlipidemia, membranous nephropathy, chronic kidney disease, gynecomastia associated with spironolactone use, and long-term, immunosuppressive medication use with cyclosporine. MEDICATIONS: Clonidine 0.3 mg 1 p.o. t.i.d., torsemide 60 mg p.o. t.i.d., metolazone 5 mg 1 p.o. q. 48 hours, levothyroxine 75 mcg 1 p.o. daily, losartan 100 mg p.o. daily, cyclosporine 100 mg 1 p.o. b.i.d., aspirin 81 mg p.o. daily, bisoprolol fumarate 10 mg p.o. daily, pravastatin 40 mg 1 p.o. daily, potassium chloride 20 mEq 1 p.o. daily. ALLERGIES: LASIX AND ATORVASTATIN (LIPITOR). SOCIAL HISTORY: He is , lives at home with his . Nonsmoker, nondrinker. FAMILY HISTORY: No known family history of nephrotic syndrome. REVIEW OF SYSTEMS: GENERAL: He has been febrile, has had chills, cough, shortness of breath, and debility. EYES: No visual changes. [facility] [address] [place] [address] HISTORY AND PHYSICAL Name: DULCE SUH Room #: 240-P [facility] IN M.R.#: [id number] Admission: 10/26/20 Attend Phys: Chino Hilliard MD, FAAF Discharge: Date of : 60 Report #: [id number] ENT: He has a hoarse voice. RESPIRATORY: He has a diminished breath sounds. He has a cough and difficulty breathing. CARDIOVASCULAR: No chest pain other than that associated with cough. GASTROINTESTINAL: No abdominal pain. He is still making urine, but less lately. NEUROLOGIC: He has no focal deficits, but is minimally verbal to assess more completely. Remainder of systems review is negative. PHYSICAL EXAMINATION/OBJECTIVE: VITAL SIGNS: Temperature is 38.6, pulse 136, respirations 24, blood pressure 166/89. He is 93% oxygenating on 3 liters. GENERAL: He is alert, minimally verbal, has a hoarse voice. COR: S1, S2, tachycardia. CHEST: Scattered coarse breath sounds. ABDOMEN: Soft, nontender. EXTREMITIES: Nonedematous. NEUROLOGIC: Intact without focal deficit. LABORATORY EVALUATION: COVID-19 PCR positive. White count is 12.8, hemoglobin 11.3, hematocrit 33.7, and platelets 348,000. Differential white count, 92% segmented neutrophils, 4% lymphocytes, 3% monocytes. Chemistry: Sodium 137, potassium 5.0, chloride 100, CO2 14, anion gap 23, BUN 179, creatinine 19.8, estimated glomerular filtration rate 2, glucose 143, calcium is 8.4, total bilirubin 0.5, direct bilirubin 0.1, AST 78, ALT 48, alkaline phosphatase 46, total protein 7.3, albumin 2.5, and lipase 2467. Procalcitonin is 4.24. TSH is 0.487. Ammonia is 37. Type A and B flu swabs negative. Salicylate is less than 2.8. Alcohol is negative, left than 10. IMAGING: Chest x-ray, ground glass appearance opacity in the right medial lower lung suggesting possible pneumonia, mild interstitial pneumonitis in the left lower lung versus interstitial fibrosis. CT scan of the chest, abdomen and pelvis findings suggesting bilateral multifocal pneumonitis such as from COVID pneumonia, bilateral renal atrophy, no acute abnormalities in abdomen, retroperitoneum or pelvis. CT scan head, no acute intracranial process. Ultrasound of the abdomen, no acute abnormalities identified. ASSESSMENT: COVID-19 pneumonia, acute on chronic renal failure, acute pancreatitis with elevated lipase, hypoxia. PLAN: Admit to ICU. He has already had a temporary dialysis catheter placed and was receiving dialysis now, has started Zithromax and ceftriaxone in the Emergency Department. We will consult Renal Medicine, Dr. Ryder, Dr. Mendoza, Tongue Trimmer and Dr. Pate, Infectious Disease specialist. [facility] [address] [place] [address] HISTORY AND PHYSICAL Name: DULCE SUH Room #: 240-P ADM IN M.R.#: [id number] Admission: 10/26/20 Attend Phys: Chino Hilliard MD, PATO Discharge: Date of : 60 Report #: [id number] with zinc, vitamin C, vitamin D, likely ivermectin, Remdesivir and likely convalescent plasma as well. Follow labs longitudinally. <ELECTRONICALLY SIGNED> By: Chino Hilliard MD, SEB, CHER 10/30/20 [id number] Chino Hilliard MD, SEB, CHER /nt
--- NOTE | 2020-10-30 14:50 | NUR ---
PT RESTING COMFORTABLY IN BED THROUGHOUT SHIFT. DIALYSIS TODAY FROM [id number] 1 LITER PULLED OFF PER HD RN, PT TOLERATED WELL. REFUSED MULTIPLE MEDICATIONS AFTER DIALYSIS WAS FINISHED. A&OX3, AFEBRILE, OLIGURIC, NO BM, TOLERATING CLEAR LIQUID DIET. PT SHOULD BE MOVED TO LOWER ACQUITY OF CARE. PT AND FAMILY HAVE BEEN UPDATED AND EDUCATED ON PT CONDITION AND POC. PT SLOWLY PROGRESSING TOWARDS POC.
--- NOTE | 2020-10-30 23:35 | NUR ---
SEE [employer] FOR ASSESSMENT. UPDATED DR PEPPER ON PT STATUS, AND HIS REFUSAL OF TX AND MEDS. AGREED TO IV MEDS, SAYS LOWER LT ABD PAIN. REFUSED ANY PAIN MEDS IF ORDERED. SMALL AMT OF DIARRHEA. TO PO FLUIDS.
[2020-10-31] VITALS (19 sets, daily range): BP systolic 125–178; BP diastolic 75–109
[2020-10-31 04:54] LABS: ALBUMIN 2.3 g/dL (3.4-5.0); CALCIUM 7.6 mg/dL (8.5-10.1); CREATININE 8.2 mg/dL (0.7-1.3); DIRECT BILIRUBIN 0.2 mg/dL (<0.1-0.2); PHOSPHORUS 9.3 mg/dL (2.5-4.9); POTASSIUM 3.9 mmol/L (3.5-5.1); TOTAL BILIRUBIN 0.7 mg/dL (0.2-1.0); TOTAL PROTEIN 5.5 g/dL (6.4-8.2)
--- NOTE | 2020-10-31 18:39 | NUR ---
AWARE PT CHANGE IN LEVEL OF CONSCIOUSNESS. PT BEING MORE CONFUSED, TRYING TO GET OUT OF THE BED AND PICKING ON MEDICAL EQUIPMENT. PER DR. PEPPER PT [facility]. PT HAD FOUR LIQUID STOOL THROUGHOUT THE DAY. HE IS COMING AROUND AND IS MORE WITH IT THIS AFTERNOON. CONTINUE TO MONITOR.
[2020-11-01] VITALS (68 sets, daily range): BP systolic 104–168; BP diastolic 68–111
--- NOTE | 2020-11-01 00:39 | NUR ---
TENDS TO TRY TO PUT LEG UP ON SIDERAIL WHEN ON HIS RIGHT SIDE. HE IS UNABLE TO FULLY PULL HIMSELF TO THE EDGE OF THE BED ON THE LEFT SIDE. SO THAT HE WILL HAVE PLENTY OF ROOM , WHEN ON HIS RIGHT SIDE. HE MOVES ALL EXTREMITIES EQUALLY, AND HAS EQUAL FOREST SCIENTIST.
--- NOTE | 2020-11-01 02:55 | NUR ---
MAINTAINING OXYGENATION LEVELS IN THE UPPER 90'S ON 4 LITERS N/C. CALM AND RESTING TONIGHT. HE HAS BEEN IN A DEEP ENOUGH SLEEP TONIGHT TO BE SNORING AT TIMES. NO CONCERNS VOICED. HE DOES NOT INITIATE CONVERSATION. FLAT AFFECT AND WITHDRAWN. TURNING SELF SIDE TO SIDE. CAREPLAN REVIEWED.
[2020-11-01 05:45] LABS: ALBUMIN 2.2 g/dL (3.4-5.0); POTASSIUM 4.1 mmol/L (3.5-5.1); TOTAL BILIRUBIN 0.5 mg/dL (0.2-1.0); TOTAL PROTEIN 4.8 g/dL (6.4-8.2)
--- NOTE | 2020-11-01 05:48 | NUR ---
PATIENT ATE A CUP OF VAMILLA PUDDING THIS AM WITH HIS MEDICATIONS. HE IS CALM AND RELAXED.
[2020-11-01 06:01] LABS: HEMATOCRIT 23.9 % (42.0-52.0); HEMOGLOBIN 7.9 gm/dL (14.0-18.0); MCH 31.4 pg (26.0-34.0); MCHC 33.1 g/dL (28.0-37.0); MCV 94.9 fL (80.0-100.0); PLATELET COUNT 217 thou/uL (150-400); RBC 2.52 mil/uL (4.50-6.00); RDW 13.5 % (10.5-14.5); WBC 7.2 thou/uL (4.0-11.0)
[2020-11-01 06:21] LABS: CREATININE 10.7 mg/dL (0.7-1.3)
[2020-11-01 10:30] LABS: ABSOLUTE NEUTROPHILS 6.6 thou/uL (1.4-8.2); ANISOCYTOSIS SLIGHT
--- NOTE | 2020-11-01 15:49 | NUR ---
CM review of case and notes and shows improvement with patient and now taking in PO intake and 02 at 4L via WI. Call made to attending to review for consideration of patient status in ICU which will be done by attending upon his rounds. NOTE: Pt lives at home with spouse Lisa Rivera at [phone] and will review with therapy possible candidate for acute rehab. CM attempted to reach spouse without success. CM will continue to monitor for discharge plan as medical plan of care continues.
[2020-11-02] VITALS (67 sets, daily range): BP systolic 95–155; BP diastolic 50–108
[2020-11-02 03:49] LABS: HEMATOCRIT 23.8 % (42.0-52.0); HEMOGLOBIN 7.8 gm/dL (14.0-18.0); MCHC 32.8 g/dL (28.0-37.0); MCV 94.6 fL (80.0-100.0); PLATELET COUNT 216 thou/uL (150-400); RBC 2.52 mil/uL (4.50-6.00); RDW 13.7 % (10.5-14.5); WBC 4.8 thou/uL (4.0-11.0)
[2020-11-02 04:30] LABS: % SATURATION 95 % (20-39); IRON 123 ug/dL (65-175); TIBC 130 ug/dL (250-450)
[2020-11-02 04:31] LABS: CALCIUM 7.3 mg/dL (8.5-10.1); POTASSIUM 3.7 mmol/L (3.5-5.1)
[2020-11-02 04:32] LABS: CREATININE 6.8 mg/dL (0.7-1.3)
[2020-11-02 08:39] LABS: ABSOLUTE NEUTROPHILS 3.9 thou/uL (1.4-8.2); PLATELET ESTIMATE NORMAL
--- NOTE | 2020-11-02 09:55 | NUR ---
ASSUMED CARE AT 0700. PATIENT'S , KARIN HANSEN, CALLED AND WAS SPOKEN TO FROM [phone]. SHE WAS UPDATED AND EDUCATED ON THE PATIENT'S CONDITION AND PLAN OF CARE.
--- NOTE | 2020-11-02 18:21 | NUR ---
ASSUMED CARE FOR PT AT THIS TIME. INTRODUCED MYSELF TO PT, PT DENIES PAIN AT THIS TIME. PT STATES HE IS COMFORTABLE. VSS. WILL CONTINUE TO MONITOR.
[2020-11-03 03:42] VITALS: BP 137/77
--- NOTE | 2020-11-03 04:20 | NUR ---
Care assumed 1900. pt alert and oriented. Denies pain nausea or vomiting. Remains SR on the monitor. Ambulatory to the bathroom with x 1 assist. SOB with activities. Will follow poc.
[2020-11-03 05:25] LABS: POTASSIUM 3.8 mmol/L (3.5-5.1)
[2020-11-03 06:12] LABS: CREATININE 9.7 mg/dL (0.7-1.3)
[2020-11-03 07:00] VITALS: BP 125/89
[2020-11-03 11:15] VITALS: BP 125/93
--- NOTE | 2020-11-03 14:14 | NUR ---
PATIENT IS A CANDIDATE FOR ACUTE REHAB STAY. AUTHORIZATION REQUEST MADE TO PATIENT'S INSURANCE AND CLINICAL INFORMATION SENT ON THIS DATE (11/03). WILL AWAIT RESPONSE FROM INSURANCE. LIKELY TO RECEIVE A RESPONSE ON 11/06/20. THANK YOU FOR THIS REFERRAL.
--- NOTE | 2020-11-03 14:47 | NUR ---
Pt evaluated by [facility] acute rehab and accepted pending insurance authorization. They will submit today as the pt will likely be ready on Friday. He contiues on hemodialysis and is being montiored for recovery;however it appears the pt may need usp dialysis and a new outpt dialysis referral. He is covid recovered and out of ISO. Home Economics Teacher visited with pt's spouse Sussy, she is an RN here on the aerodynamics engineer. She is agreeable to [facility] acute rehab. Questions answered about outpt dialysis setup, rehab, and hh/or dme needs at [place]. She notes his mental status as well as his functional status is significantly different than prior to admission. The pt was working fulltime,indep, active and driving. She is hopeful he will be able to recover and be able to be home alone when she is at work or sleeping. She also notes that she has an out of town trip in November for two weeks and would need to either cancel or arrange for the pt's sisters to help with transport and in home support pending his progress. [facility] would be their clinic of choice due to location. Will start outpt dialysis referral with [facility] and see how the pt does over the weekend. He is still having loose stools and low hgb as well. Case discussed with the attending and care team.
[2020-11-03 15:22] VITALS: BP 143/96
--- NOTE | 2020-11-03 17:06 | NUR ---
1655: FIRST ATTEMPT TO GIVE REPORT TO [facility]
--- NOTE | 2020-11-03 17:07 | NUR ---
1705: SECOND ATTEMPT AT GIVING REPORT TO [facility]
--- NOTE | 2020-11-03 18:11 | NUR ---
ASSUMED CARE SHIFT CHANGE. ASSESSMENT CHARTED.MEDS GIVEN. VSS. DENIES PAIN. DENIES SOB. PT WORKED WITH OT AND PT TOLERATING FAIR. DIALYSIS THIS SHIFT 1.5L REMOVED PT TOLERATED WELL. TX ORDERS 4W. REPORT SUCCESSFULLY GIVEN CHRISTIN RAM ON 4W AFTER 2 ATTEMPTS. PT TRANSFERRED WITH ALL BELONGINGS. WILL NOTIFY FAMILY.
[2020-11-03 18:48] VITALS: BP 152/69
--- NOTE | 2020-11-03 19:34 | NUR ---
Received pt from CCU, just had dialysis as per RN removed 1500 cc. POC followed with no signs or verbalizations of distress noted. Endorsed to the night nurse.
[2020-11-03 20:44] VITALS: BP 133/97
[2020-11-04 05:32] VITALS: BP 147/93
[2020-11-04 06:40] LABS: HSV PCR SOURCE MOUTH
[2020-11-04 06:42] LABS: HEMATOCRIT 22.4 % (42.0-52.0); HEMOGLOBIN 7.4 gm/dL (14.0-18.0); MCH 31.3 pg (26.0-34.0); MCV 94.9 fL (80.0-100.0); PLATELET COUNT 216 thou/uL (150-400); RBC 2.36 mil/uL (4.50-6.00); RDW 13.4 % (10.5-14.5); WBC 5.9 thou/uL (4.0-11.0)
[2020-11-04 06:53] LABS: CALCIUM 7.3 mg/dL (8.5-10.1); POTASSIUM 3.6 mmol/L (3.5-5.1)
[2020-11-04 06:54] LABS: CREATININE 6.7 mg/dL (0.7-1.3)
[2020-11-04 07:27] LABS: ABSOLUTE NEUTROPHILS 5.4 thou/uL (1.4-8.2); PLATELET ESTIMATE NORMAL
[2020-11-04 07:32] VITALS: BP 128/87
--- NOTE | 2020-11-04 12:03 | NUR ---
Patient has been unwilling to eat during shift. Refused breakfast and denied wanting lunch. Stated was too tired to eat. Blood glucose was WNL for breakfast, however was 196 at lunch. 3 units of insulin lispro given. Patient has responded well to smaller snacks such as ice cream and pudding. Will continue to monitor.
[2020-11-04 15:13] VITALS: BP 148/97
[2020-11-04 20:34] VITALS: BP 153/100
--- NOTE | 2020-11-05 04:47 | NUR ---
ASSUMED CARE OF PT AT 1900HRS. PT AOX4 AND LETS NEEDS BE KNOWN. FALL PRECAUTION IN PLACE. PT DENIED PAIN OR NAUSEA. O2 REDUCED TO 2L VIA NC. ORTIZ IN PLACE AND PATIENT. PT RAN SR/ST ON TELE. PT PLACED NPO AT NV FOR PROCEDURE IN THE AM. PT WAS ABLE TO GET COMFORTABLE AND SLEEP PART OF THE SHIFT. VSS AND NO S/S OF ACUTE DISTRESS. WILL CONTINUE TO MONITOR.
[2020-11-05 05:25] VITALS: BP 161/105
[2020-11-05 06:01] LABS: HEMATOCRIT 22.3 % (42.0-52.0); HEMOGLOBIN 7.5 gm/dL (14.0-18.0); MCH 31.7 pg (26.0-34.0); MCHC 33.6 g/dL (28.0-37.0); MCV 94.4 fL (80.0-100.0); PLATELET COUNT 222 thou/uL (150-400); RBC 2.36 mil/uL (4.50-6.00); RDW 13.5 % (10.5-14.5); WBC 6.6 thou/uL (4.0-11.0)
[2020-11-05 06:49] LABS: ABSOLUTE NEUTROPHILS 5.7 thou/uL (1.4-8.2); PLATELET ESTIMATE NORMAL
[2020-11-05 06:54] LABS: ALBUMIN 2.3 g/dL (3.4-5.0); CALCIUM 7.2 mg/dL (8.5-10.1); CREATININE 9.5 mg/dL (0.7-1.3); POTASSIUM 3.7 mmol/L (3.5-5.1)
[2020-11-05 07:44] VITALS: BP 141/89
--- NOTE | 2020-11-05 13:14 | NUR ---
Patient was titrated to 2L/minute O2 via NC. Patient has maintained oxygen saturation over 95% throughout shift. Capillary refill has remained < 3 seconds. Patient has been comfortable with no shortness of breath or complaints of lightheadedness. Dr. Degroot placed order for IR for permanent dialysis catheter in AM. Patient and notified. Will continue to monitor oxygen saturation throughout shift.
[2020-11-05 16:12] VITALS: BP 143/88
[2020-11-05 19:57] VITALS: BP 153/90
[2020-11-05 22:05] LABS: HSV 1 DNA Negative (Negative); HSV 2 DNA Negative (Negative)
--- NOTE | 2020-11-06 05:00 | NUR ---
PT BEEN SLEEPING MOST OF THE NOC IN NO ACUTE DISTRESS.A/OX4.VSS.PT DENIES ANY CONCERNS AT THIS TIME.NPO AFTER MIDNOC FOR PROCEDURE TODAY FOR TUNNELLED DIALYSIS CATHETER.PT HOPING TO TRANSFER TODAY TO REHAB.ANGEL NICOLE.DIALYSIS TODAY.WILL CONT W/CURRENT MANAGEMENT.
[2020-11-06 06:39] VITALS: BP 145/65
[2020-11-06 07:24] VITALS: BP 146/101
[2020-11-06 08:34] LABS: APTT 24.3 Seconds (24.5-32.8); PROTIME 10.4 Seconds (9.3-11.4)
--- NOTE | 2020-11-06 12:15 | NUR ---
[facility] HAS SUBMITTED FOR AUTH FOR ACUTE INPATIENT REHAB. CM CHECKED WITH LIAISON NO WORK ON AUTH OF THIS NOTE. CM SPOKE WITH PT'S SPOUSE SHE IS AWARE THAT WE ARE STILL AWAITING AUTH. PT TO HAVE TUNNELED DIALYSIS CATHETER PLACE THIS DAY. CM TO FOLLOW INDICATED WITH DC PLANNING.
[2020-11-06 15:00] VITALS: BP 139/94
[2020-11-06 16:30] VITALS: BP 136/94
--- NOTE | 2020-11-06 19:13 | NUR ---
Assumedpt care this am, had dialysis early in the am. Maintained NPO for dialysis tunnelled cat placement. 2L of O2 via NC maintianed. Pressure was placed over the right jugular near the new dialysis cat d/t excessive bleeding, pressure was placed on the site for more than 30 min, cat lab informed. Dr. Cowan (cat lab) and nurse came up and redressed the site. Frequent monitoring done through out the shift, POC followed, vs stable no signs or verbalizations of distress noted. Endorsed o the night nurse.
[2020-11-06 19:51] VITALS: BP 136/88
--- NOTE | 2020-11-07 05:54 | NUR ---
PT BEEN RESTING QUIETLY. NO SIGNS OF BLEEDING FROM THE LEFT JUGULAR DIALYSIS SITE. PT IS AFEBRILE. TOTALLY ALERT AND ORIENTED. ON /.NO S/SX OF RESP DISTRESS. AFEBRILE. NEEDS MEDS CRUSHED IN APPLESAUCE. SOMEWAHT ANXIOUS ABOUT THE BLEEDING EPISODE IN THE DAY-HENCE AVOIDING TO MOVE OR REPOSITION IN BED. ORTIZ TO D/D.CALLS WITH NEEDS.
[2020-11-07 06:32] VITALS: BP 139/95
[2020-11-07 06:37] LABS: HEMOGLOBIN 7.5 gm/dL (14.0-18.0); MCH 32.1 pg (26.0-34.0); MCV 94.5 fL (80.0-100.0); PLATELET COUNT 172 thou/uL (150-400); RBC 2.33 mil/uL (4.50-6.00); RDW 13.4 % (10.5-14.5); WBC 5.4 thou/uL (4.0-11.0)
[2020-11-07 06:51] LABS: CALCIUM 7.2 mg/dL (8.5-10.1); POTASSIUM 3.3 mmol/L (3.5-5.1)
[2020-11-07 06:52] LABS: CREATININE 7.1 mg/dL (0.7-1.3)
[2020-11-07 08:17] VITALS: BP 128/86
[2020-11-07 11:35] LABS: METAMYELOCYTES 1 %
[2020-11-07 11:36] LABS: ABSOLUTE NEUTROPHILS 4.7 thou/uL (1.4-8.2); ANISOCYTOSIS SLIGHT; MYELOCYTES 1 %
--- NOTE | 2020-11-07 12:37 | NUR ---
ASSUMED PT CARE THIS AM. PT VSS. PATIENT HAS A FLAT AFFECT, BUT IS COOPERATIVE WITH STAFF. DRESSING ON LEFT NECK CHANGED AROUND 0730 DUE TO BEING SATURATED WITH BLOOD. FOLWY CATHETER IN PLACE, DRAINING WELL. ON 2 LITERS NASAL CANULA. PT REPORTING NO NUMBNESS, TINGLING, OR DIZZINESS. FALL PRECAUTIONS ARE IN PLACE. ON TELEMETRY.TOOK MEDS WELL WITHOUT COMPLAINT.
[2020-11-07 13:23] VITALS: BP 132/80
--- NOTE | 2020-11-07 14:38 | NUR ---
AUTH FOR [facility] WAS RECEIVED FROM PT'S INSURANCE. CM CALLED AND NOTIFIED PT'S SPOUSE. AWAITING INDICATION FORM PHYSICAIN TO WHEN PT MIGHT BE MEDICALLY STABLE TO DISCHARGE TO 5N. CM HEARD FROM JOVITA AT [facility] THIS SAY. SHE INDICATED THAT THEY ARE ABLE TO ACCEPT PT FOR OP HD UPON DC. THEY INDICATED THAT PT WOULD BE MWF AND THAT THERE A MAY OPEN CHAIR TIMES. CM TO CONVEY THESE TO PT AND SPOUSE. CM TO FOLLOW INDICATED WITH DC PLANNING.
--- NOTE | 2020-11-07 15:37 | NUR ---
PATIENT APPROVAL FOR INPATIENT ACUTE REHAB STAY RECEIVED THIS DATE. INFORMED DR. LEOS OF APPROVAL. PER DR. LEOS, PATIENT TO DISCHARGE TO ACUTE REHAB TOMORROW, 11/08/20. [facility] SALES PROGRAM MANAGER INFORMED. THANK YOU FOR THIS REFERRAL.
[2020-11-07 16:06] VITALS: BP 115/79
[2020-11-07 21:23] VITALS: BP 127/82
[2020-11-08 05:52] LABS: HEMATOCRIT 22.7 % (42.0-52.0); HEMOGLOBIN 7.6 gm/dL (14.0-18.0); MCHC 33.6 g/dL (28.0-37.0); MCV 95.4 fL (80.0-100.0); RBC 2.38 mil/uL (4.50-6.00); RDW 13.6 % (10.5-14.5); WBC 5.4 thou/uL (4.0-11.0)
[2020-11-08 06:46] LABS: CALCIUM 7.5 mg/dL (8.5-10.1)
[2020-11-08 06:47] VITALS: BP 148/94
[2020-11-08] MEDS ORDERED: PROVENTIL HFA6.7 G1 INH (06:51)
[2020-11-08] MEDS ORDERED: ONDANSETRON4 MG/2 M1 IV PUSH (06:52)
[2020-11-08] MEDS ORDERED: HEPARIN SO5000 UNIT/ SUBQ (06:52)
[2020-11-08] MEDS ORDERED: PEPCID20 MG PO (06:53)
[2020-11-08] MEDS ORDERED: PREDNISONE 10 M10 M1 PO (06:54)
[2020-11-08 07:37] VITALS: BP 135/96
--- NOTE | 2020-11-08 08:22 | NUR ---
Assumed pt care at 1900. A/OX4, with flat affect. VSS. Pt is up with AX1,GB/RW. C/o pain to neck with movement and avoids movement;denies need for pain meds. Pt dsg on left jugular tesio had small dried blood at beginning of the shift but more bleeding noted this morning w/clots noted approx 0500;pt's HS Heparin had been held.Pressure applied and bleeding stopped within 5 minutes;dsg changed to site,VSS.Pt very anxious about the situation;1:[address] Poon in this morning and updated,informed to continue holding anticoagulant this morning.Day nurse updated.
[2020-11-08] MEDS ORDERED: TORSEMIDE20 MG PO (11:39)
[2020-11-08] MEDS ORDERED: LOSARTAN POTAS100 MG PO (11:40)
[2020-11-08] MEDS ORDERED: POTASSIUM20 PO (11:40)
[2020-11-08] MEDS ORDERED: VASCEPA1 GM PO (11:40)
--- NOTE | 2020-11-08 12:33 | NUR ---
ASSUMED PT CARE THIS AM. PT VSS. CALLS APPROPRIATELY WHEN NEEDED. DRESSING ON LEFT NECK WITH DRIED DRAINAGE, NO FRESH DRAINAGE. FOELY CATHETER IN PLACE. RECEIVED DIALYSIS TODAY, TOOK 1500 ML OFF. TOOK MEDS WELL THIS AM. HEPARIN AND ASPIRIN HELD DUE TO BLEEDING RISK. UP TO BEDSIDE COMMODE WITH ASSIST. IV IN RIGHT HAND AND RIGHT WRIST. ON TELE. FALL PRECAUTIONS IN PLACE.
--- NOTE | 2020-11-08 15:49 | NUR ---
CARE TEAM INDICATED THAT PT IS MEDICALLY STABLE TO DISCHARGE TO 5[facility] THIS DAY AFTER DIALYSIS SERVICES. PT IS AWARE AND AGREEABLE. PT'S SPOUSE TO BE NOTIFIED. NO OTHER CM INTERVENTION INDICATED. CASE CLOSED.
== END 2020-11-08 13:40 | DRG 871 ==
LOC: ER 10:47 → EROBS 12:37 → 4W 12:37 → ICU 12:37 → 2N 11-02 18:02 → 4W 11-03 17:46
PROVIDERS: Hospitalist; Internal Medicine; Nurse Practitioner; Radiology Vascular & Interventional Radiology; Specialist; ADMIT Family Medicine; ATTEND Family Medicine
PROC: 02HV33Z Insertion of Infusion Device into Superior Vena Cava, Percutaneous Approach (ICD-10-PCS; 2020-10-26)
PROC: XW033E5 Introduction of Remdesivir Anti-infective into Peripheral Vein, Percutaneous Approach, New Technology Group 5 (ICD-10-PCS; 2020-10-27)
PROC: B548ZZA Ultrasonography of Superior Vena Cava, Guidance (ICD-10-PCS; principal; 2020-11-06)
PROC: 0JH63XZ Insertion of Tunneled Vascular Access Device into Chest Subcutaneous Tissue and Fascia, Percutaneous Approach (ICD-10-PCS; principal; 2020-11-06)
PROC: 02HV33Z Insertion of Infusion Device into Superior Vena Cava, Percutaneous Approach (ICD-10-PCS; principal; 2020-11-06)
PROC: B5181ZA Fluoroscopy of Superior Vena Cava using Low Osmolar Contrast, Guidance (ICD-10-PCS; principal; 2020-11-06)
DX: A41.9 Sepsis, unspecified organism (principal); U07.1 COVID-19; K85.90 Acute pancreatitis without necrosis or infection, unspecified; J12.82 Pneumonia due to coronavirus disease 2019; J96.01 Acute respiratory failure with hypoxia; G93.41 Metabolic encephalopathy; N17.9 Acute kidney failure, unspecified; E46 Unspecified protein-calorie malnutrition; D84.9 Immunodeficiency, unspecified; E78.5 Hyperlipidemia, unspecified; E03.9 Hypothyroidism, unspecified; I12.9 Hypertensive chronic kidney disease with stage 1 through stage 4 chronic kidney disease, or unspecified chronic kidney disease; K59.00 Constipation, unspecified; N18.30 Chronic kidney disease, stage 3 unspecified; R41.0 Disorientation, unspecified; T38.0X5A Adverse effect of glucocorticoids and synthetic analogues, initial encounter; R73.9 Hyperglycemia, unspecified; K12.30 Oral mucositis (ulcerative), unspecified; D64.9 Anemia, unspecified; Z68.29 Body mass index [BMI] 29.0-29.9, adult; Z91.040 Latex allergy status; Z79.899 Other long term (current) drug therapy; Z88.8 Allergy status to other drugs, medicaments and biological substances; Z82.49 Family history of ischemic heart disease and other diseases of the circulatory system; Z79.82 Long term (current) use of aspirin; Y92.89 Other specified places as the place of occurrence of the external cause
CPT/HCPCS: 10045; 10047; 10078; 10081; 32100

== ENCOUNTER 2020-11-08 13:53 | Inpatient (IN) | payer BC, OTHER ==
[~2020-11-08] VITALS: Ht 182.9 cm; Wt 98.0 kg
--- NOTE | ~2020-11-08 | HC ---
[facility] [place] [address] CONSULTATION Name: DULCE SUH Room #: 516-1 ADM IN M.R.#: [id number] Admission: 11/08/20 Attend Phys: Efren Harding MD Discharge: Date of : 60 Report #: [id number] THIS REPORT FOR: cc: Chino Hilliard MD [facility] Chino Zhou MD [facility] Kalani Bucio MD ~ DATE OF SERVICE: 11/09/2020 REASON FOR CONSULTATION: Medical management. HISTORY OF PRESENT ILLNESS: The patient is a 59-year-old male, who was admitted to the hospital on 10/26/2020 with acute respiratory failure and COVID pneumonia. The patient was treated with IV Solu-Medrol in addition to remdesivir. The patient was on IV antibiotic that was tapered down. During the patient's stay in the hospital, he had acute pancreatitis that has improved. The patient also is known to have a history of stage 4 chronic kidney disease that progressed to requiring dialysis. The patient became very debilitated, and for this reason, he is transferred to [address] [place] [address] for rehabilitation. PAST MEDICAL HISTORY: Significant for hypertension, hyperlipidemia, membranous nephropathy, chronic kidney disease, gynecomastia associated with spironolactone use, long-term immunosuppressive medications use. MEDICATIONS: The patient's medications were reviewed. ALLERGIES: LASIX AND ATORVASTATIN. SOCIAL HISTORY: The patient is . He lives at home with his . No history of smoking or alcohol use. FAMILY HISTORY: Noncontributory. REVIEW OF SYSTEMS: Negative besides what was mentioned above. PHYSICAL EXAMINATION: VITAL SIGNS: The patient's temperature is 97.5, pulse 95, respirations 18, blood pressure 124/83. HEAD AND NECK: Unremarkable. The patient is on 2 liters of oxygen. Neck was supple, no JVD, no carotid bruits. LUNGS: Clear to auscultation. CARDIAC: S1, S2. ABDOMEN: Benign. Bowel sounds were positive. EXTREMITIES: Without any edema. LABORATORY DATA: The patient's lab showed sodium of 137, potassium 3.8, [facility] [address] [place] [address] CONSULTATION Name: DULCE SUH Room #: 516-1 ADM IN M.R.#: [id number] Admission: 11/08/20 Attend Phys: Efren Harding MD Discharge: Date of : 60 Report #: [id number] chloride 100, bicarbonate 29, BUN 39, creatinine 6, glucose 111, calcium 7.5. CBC showed a white count of 5.1, hemoglobin 8, hematocrit 24, platelet count 177. ASSESSMENT: 1. Recent COVID pneumonia. 2. Acute pancreatitis. 3. Membranous nephropathy, status post initiating of hemodialysis. 4. Acute respiratory failure. 5. Severe debility. 6. Hypertension. PLAN: The patient was admitted to the hospital with the above-mentioned diagnoses. The patient is on tapering dose of prednisone and hopefully this will be stopped within 4-5 days. The patient to continue his blood pressure medications. The patient is to start physical therapy and occupational therapy. The patient is to continue heparin for DVT prophylaxis. We will continue to monitor the patient during his stay in the hospital. By: [id number] Kalani Norris MD /nt
--- NOTE | ~2020-11-08 | PLAN ---
[facility] [place] [address] REHAB UNIT PLAN OF CARE Name: DULCE SUH Room #: 516-1 ADM IN M.R.#: [id number] Admission: 11/08/20 Attend Phys: Efren Harding MD Discharge: Date of : 60 Report #: [id number] THIS REPORT FOR: cc: Chino Hilliard MD, FAAFP, FACEP, Douglas MD FAAFP FACEP Smithson, David G. MD ~ DATE OF SERVICE: 11/11/2020 PROGRESS NOTE/OVERALL CARE SUBJECTIVE: The patient was seen back in followup. Last recorded temperature 36.6, pulse 60, respirations 16, blood pressure 117/78. He had a Wiseman catheter removed yesterday and appeared to be voiding well. He is continuing in therapies on 3 liters. Appreciate Infectious Disease involvement with Nephrology assisting with his dialysis. Functionally, he is transferring with standby assistance with gait 350 feet contact guard without a device. In occupational therapy, lower body dressing is standby assistance with upper body supervision. He also has speech therapy involved and they are working with him with moderate cognitive deficits and memory deficits noted. As far as his swallowing, he is on a mechanical soft, ground with full liquids. ASSESSMENT: 1. Medical complexity with generalized debilitation. 2. Delirium versus acute metabolic encephalopathy. 3. COVID-19 pneumonia with respiratory failure. 4. Acute pancreatitis. 5. Acute renal insufficiency, complicating membranous nephropathy, now with end-stage renal disease, on hemodialysis. 6. Chronic immunosuppression. 7. Anemia. 8. Protein-calorie malnutrition. 9. Hypertension. PLAN: The overall plan of care is based on the preadmission screen and information garnered from therapy assessments. 1. Estimated length of stay is probably at least the next 7-10 days, pending progress and overall medical stability. 2. Medical prognosis is reasonably good. 3. Anticipated interventions includes the interdisciplinary acute inpatient rehabilitation program. 4. Anticipated functional outcomes would be for the patient to become modified independent with transfers, mobility and ADLs to improve as far as cognition and memory and to achieve a point where he can return back to the home setting. 5. Discharge destination would be back home with his . 6. Expected therapy by discipline includes PT, OT and speech 1 hour per day [address] [address] REHAB UNIT PLAN OF CARE Name: DULCE SUH Room #: 516-1 ADM IN [facility].#: [id number] Admission: 11/08/20 Attend Phys: Efren Harding MD Discharge: Date of : 60 Report #: [id number] each 5 days a week throughout the duration of the acute inpatient rehabilitation stay. ADDENDUM: The patient's prognosis for significant practical improvement within a reasonable period of time appears good. Given the patient's complex medical condition and risk of further medical complication, rehabilitation services could not be safely provided at a lower level of care such as a senior care facility. By: [id number] Efren Harding MD /ROXIE
[~2020-11-08 13:53] MED LIST changes: +HEPARIN SO5000 UNIT/ SUBQ; +LOSARTAN POTAS100 MG PO; +ONDANSETRON4 MG/2 M1 IV PUSH; +PEPCID20 MG PO; +PREDNISONE 10 M10 M1 PO; +PROVENTIL HFA6.7 G1 INH; +VASCEPA1 GM PO
--- NOTE | 2020-11-08 14:29 | NUR ---
Chart review. new to acute rehab today. He in room with [facility] team working with him on assessments. cm spoke with yovanny via phone call, intro to cm and dcp. noted he lives with his cullen, who works here on night baker. He been positive for covid and is out of isolation now. He independent prior to hospital. live [address] [facility]. no steps. no dme, no hh or rehab in past. will cont following as needed for dc needs
[2020-11-08 19:00] VITALS: BP 124/83
[2020-11-09] VITALS (7 sets, daily range): BP systolic 87–120; BP diastolic 63–77
--- NOTE | 2020-11-09 02:13 | NUR ---
ASSESSMENT: PT REMAIN ALERT AND ORIENT TIMES THREE. FORGETFUL TO SITUATION AT TIMES. REFUSED TO BE REPOSITIONED, STATE THAT HE WAS COMFORTABLE AND HE WOULD "ADJUST" HIMSELF. VSS, AFEBRILE. ORTIZ PATENT WITH LIGHT YELLOW OUTPUT. NO BM, OCCULT BLOOD STOOL SAMPLE PENDING. LEFT SUBCLAVIAN TESSIO INTACT, DRESSING C/D/I. RIGHT OLD TESSIO SITE, DRY. VSS, AFEBRILE.
[2020-11-09 05:28] LABS: MCH 31.8 pg (26.0-34.0); MCHC 33.3 g/dL (28.0-37.0); MCV 95.4 fL (80.0-100.0); RBC 2.52 mil/uL (4.50-6.00); RDW 13.4 % (10.5-14.5); WBC 5.1 thou/uL (4.0-11.0)
[2020-11-09 05:46] LABS: CALCIUM 7.5 mg/dL (8.5-10.1); POTASSIUM 3.8 mmol/L (3.5-5.1)
--- NOTE | 2020-11-09 11:24 | NUR ---
PT CARE ASSUMED AT 0700. ASSESSMENTS CHARTED. MEICATIONS CHARTED. BLADDER TRAINING BEGUN TODAY. ORTIZ. DIET CHANDGED TO PUREED. OCCULT BLOOD NEEDED IF PT HAS BM. GAIT BELT AND WALKER. PT TAKES MEDICATION CRUSHED IN PUDDING.
--- NOTE | 2020-11-09 11:57 | NUR ---
PATIENT WEANED OFF O2 TODAY TO ROOM AIR TOLERATED, BUT DURING ADL'S, PT BECAME DIZZY, AND WAS ASSISTED TO SEATED. O2 SAT ON ROOM AIR WAS 85, AND PT QUICKLY JUMPED TO 100% WHEN 4L SUPPLEMENTAL O2 PER NC WAS PLACED. WEANED BACK TO 2L FOR REMAINING TIME WITH OT, AND DIZZINESS SUBSIDED WITH O2 AND REST. WILL CONTINUE TO WEAN PT TOLERATES BUT O2 WILL BE ON FOR THERAPIES AT THIS TIME.
--- NOTE | 2020-11-09 12:59 | NUR ---
Nutrition: Phosphorus 11.0. REC consideration of phos binder.
[2020-11-10 06:25] VITALS: BP 116/73
--- NOTE | 2020-11-10 07:12 | NUR ---
PT MAKING PROGRESS TOWARDS GOALS. PT BACKSIDE WITHOUT WOUNDS OR REDNESS. OFFERED TO TURN PT AND EXPLAINED PERFORMING TURNS IN BED OVERNIGHT TO HELP PREVENT ANY SKIN WOUNDS DUE TO DECREASED MOBILITY. PT REFUSED AND STATED THAT HE WAS MOSTLY COMFORTABLE SLEEPING ON HIS BACK.
[2020-11-10 08:00] VITALS: BP 105/57
--- NOTE | 2020-11-10 10:36 | NUR ---
PT WENT DOWN FOR SWALLOW STUDY THIS AM @1040. NANDA UNCLAMPED AT 1000. PT UP WITH ASSISTX1.
--- NOTE | 2020-11-10 14:56 | NUR ---
PATIENT OFF THE UNIT OVER THE LUNCH HOUR FOR SWALLOW VIDEO TEST AND FSBS AT NOON WAS MISSED PER RHEUMATOLOGIST.
--- NOTE | 2020-11-10 18:45 | NUR ---
PT TOLERATED THERAPIES WELL TODAY. ORTIZ WAS REMOVED THIS AFTERNOON PER MD ORDERS AT 1430 AND INSTRUCTIONS GIVEN TO PT TO CALL FOR ASSIST AND REGARDING TIMED VOIDING PLAN. PT DENIED URGE TO VOID THROUGHOUT THE AFTERNOON BUT WAS ASSISTED TO BR TO 'TRY" THIS EVENING, VOIDED AND HAD BM ON TOILET, AND TRANSFERRED HIMSELF BACK TO BED WITHOUT ASSIST. CHANGED TO A YELLOW BELT HE DID NOT CALL FOR ASSIST PER REPORT BY MOVING WORKER. BLADDER SCAN WAS 64 CC PER MOVING WORKER REPORT. PT REQUESTED THAT THE MD PLEASE CONSIDER WHEN NYSTATIN SWISH CAN BE STOPPED, HIS MOUTH FEELS BETTER. THIS WAS PASSED ON IN REPORT TO ONCOMING SHIFT TO ASK IN ROUDNS IN AM. CLONIDINE WAS HELD THIS AFTERNOON DUE TO BP 101/62, AND AFTER DR. LEOS WAS NOTIFIED. PARAMETERS WERE RECEIVED FOR FUTURE USE OF THE CLONIDINE. WEANING O2 TOLERATED AND REPORT GIVEN TO ONCOMING SHIFT.
[2020-11-10 19:18] VITALS: BP 109/78
[2020-11-11 07:45] VITALS: BP 117/78
--- NOTE | 2020-11-11 13:12 | NUR ---
ASSUMED CARE AT 0700. SLEPT FAIRLY WELL. ALERT AND ORIENTATED. DENIES ANY PAIN. ON 3L O2. UP WITH MIN ASSIST. APPETITE GOOD. TOLERATED HIS MEDS CRUSHED WITH APPLE SAUCE. VOIDING ADEQUATELY. PLAN FOR HD TODAY. HAS A LEFT CHEST TESSIO. LAST BM 11/10. NEED SPEC FOR OCCULT BLOOD. NO SIGN OF VISIBLE BLEEDING. PARTICIPATING WITH THERAPY. CONT TO MONITOR.
[2020-11-11 20:14] VITALS: BP 113/76
--- NOTE | 2020-11-12 02:23 | NUR ---
assumed care approx 1900 evening 11/11. pt sitting up in bed at change of shift resting and watching tv. pt alert and oriented x4, appropriate and cooperative. pt up to bathroom to void and have small bm with walker with 1 assist. pt took hs meds crushed with yogurt tolerating well. pts sat 93-97% on room air. pt appears to be sleeping soundly. bed alarm on and call light in reach. will continue to monitor.
[2020-11-12 05:11] LABS: ALBUMIN 2.2 g/dL (3.4-5.0); CALCIUM 7.4 mg/dL (8.5-10.1); CREATININE 5.3 mg/dL (0.7-1.3); PHOSPHORUS 3.9 mg/dL (2.6-4.7)
[2020-11-12 06:20] VITALS: BP 91/53
[2020-11-12 07:05] VITALS: BP 125/72
--- NOTE | 2020-11-12 11:07 | NUR ---
ASSUMED CARE AT 0700. PATIENT IS ALERT AND ORIENTED X4. PATIENT ELLINGTON'S, CARDIOVASCULAR SURGICAL TECH ARE EQUAL. LUNGS ARE DEMINISHD. ABD IS SOFT WITH BSX4. PATIENT HAS LEFT CHEST TESSIO FOR DIALYSIS. PATIENT IS UP IN BED FOR BREAKFAST. FALL AND SAFETY PROTOCOLS IN PLACE. DENIES PAIN AT THIS TIME. CONTINUES TO PROGRESS SLOWLY TOWARDS D/C GOALS. WILL CONTINUE TO MONITER.
[2020-11-12 14:23] VITALS: BP 113/76; BP 137/80
[2020-11-12 14:24] VITALS: BP 112/81
[2020-11-12 20:17] VITALS: BP 104/59
--- NOTE | 2020-11-13 01:29 | NUR ---
assumed care approx 1900 evening 11/12. pt tired dozing early. pt with flat affect. pt took hs meds crushed with yogurt tolerating well. pt appears to be sleeping soundly. bed alarm on and call light in reach. will continue to monitor.
[2020-11-13 05:26] VITALS: BP 132/77
[2020-11-13 07:38] VITALS: BP 107/74
[2020-11-13 09:21] LABS: ALBUMIN 2.6 g/dL (3.4-5.0); CALCIUM 7.7 mg/dL (8.5-10.1); PHOSPHORUS 3.3 mg/dL (2.5-4.9); POTASSIUM 3.3 mmol/L (3.5-5.1)
[2020-11-13 09:24] LABS: CREATININE 7.6 mg/dL (0.7-1.3)
--- NOTE | 2020-11-13 13:11 | NUR ---
ASSUMED CARE AT 0700. SLEPT FAIRLY WELL. ALERT AND ORIENTATED X 4. DENIES ANY PAIN. APPETITE GOOD. LAST BM 11/11. ON ROOM AIR. NO SIGN OF BLE EDEMA. VOIDS PER URINAL. PARTICIPATING WITH THERAPY AND PROGRESSING SLOWLY TOWARDS GOAL. TOLERATES MEDS CRUSHED IN APPLE SAUCE.
[2020-11-13 20:06] VITALS: BP 109/72
--- NOTE | 2020-11-14 02:59 | NUR ---
RESTING WELL AND TURNING SELF TO SIDE WITH NO ENCOURAGEMENT NEEDED. REMINDED US THAT CRUSHING MEDS AND PUTTING THEM IN APPLESAUCE HELPED HIM TOLERATE THEM MUCH BETTER AND SAFER.
[2020-11-14 06:11] LABS: ALBUMIN 2.3 g/dL (3.4-5.0); CALCIUM 7.6 mg/dL (8.5-10.1); CREATININE 8.3 mg/dL (0.7-1.3); POTASSIUM 3.3 mmol/L (3.5-5.1)
[2020-11-14 06:21] VITALS: BP 108/67
[2020-11-14 07:26] VITALS: BP 119/76
--- NOTE | 2020-11-14 10:25 | HC ---
[facility] [place] [address] CONSULTATION Name: DULCE SUH Room #: 516-1 ADM IN M.R.#: [id number] Admission: 11/08/20 Attend Phys: Efren Harding MD Discharge: Date of : 60 Report #: [id number] THIS REPORT FOR: cc: Chino Hilliard MD, FAAFP, FACEP, Douglas MD FAA Dino Cisse PhD ~ DATE OF SERVICE: 11/12/2020 NEUROBEHAVIORAL STATUS EXAM ATTENDING PHYSICIAN: Efren Harding MD HR ASSOCIATE: Dino Krause, PhD CLINICAL PRESENTATION: The patient is a 59-year-old male admitted to the hospital on 10/26/2020 with worsening respiratory symptoms. The patient was diagnosed with COVID-19 on 10/07/2020. His condition deteriorated and he was eventually admitted to ICU. He was treated with Solu-Medrol on a slow taper along with remdesivir. His assessment on admission to the rehabilitation unit was medical complexity with generalized debilitation; delirium versus acute metabolic encephalopathy; COVID-19 pneumonia with respiratory failure; acute pancreatitis; HEAVENLY; complicating membranous nephropathy; now ESRD, on HD; chronic immunosuppression; anemia; PCM; hypertension and thrush. A complete description of his medical condition and history can be found in his medical record. Neuropsychological consultation was requested to provide assistance in the assessment, cognitive and emotional status and to provide recommendations and services. The patient describes an extended period of amnesia. He has a 3-week period of time in which he does not remember events that immediately proceeded and during his initial hospitalization. He indicated that his noticed confusion and disorientation when she brought him to the hospital. The patient is a high school graduate plus 2 years of college obtaining an associate of arts degree. 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 He does not report a history of treatment for anxiety or depression. The patient does not have children. 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. TECHNIQUES UTILIZED: Clinical interview, review of medical records, staff consultation and behavioral observation, mini mental status exam 2 standard version and verbal fluency assessment and clock drawing. [facility] [address] [place] [address] CONSULTATION Name: DULCE SUH Room #: 516-1 ADM IN M.R.#: [id number] Admission: 11/08/20 Attend Phys: Efren Harding MD Discharge: Date of : 60 Report #: [id number] EXAMINATION FINDINGS: The patient was alert and cooperative with the assessment. There is no evidence of aphasia. Thoughts are logical and goal oriented. There is no evidence of thought disorder. He does not report suicidal ideation. Symptoms reported include word finding, decreased memory and increased anxiety. He does not report difficulty with sleep, appetite or depression. There is no history of alcohol/drug abuse. Performance on the MMSE 2 brief version is in the mild range of impairment with a raw score of 13/16. He was 3/3 for initial registration, 4/5 for orientation to time and 5/[address]. He is 1/3 for immediate recall of 3 items after a brief time delay and distraction. Performance on the MMSE 2 standard version was 23/30, which is in the borderline range with a T score of 31 and percentile rank of 3. He was 1/5 for serial sevens, 2/2 for naming, 1/1 for repetition, 3/3 for comprehension, 1/1 for reading and 1/1 to harris a single sentence. He was able to copy a simple geometric design. Clock drawing was within normal limits. Visual spatial construction is normal. The patient is presenting with deficits in letter category and total verbal fluency. Letter fluency was a T score of 19, which is less than 1%. Total category fluency and total fluency were all T scores of 19, which is a percentile rank of less than 1. The patient is presenting with deficits that are likely in attention/concentration, executive functioning and immediate memory. DIAGNOSTIC IMPRESSION: Neurocognitive disorder -- extent to be determined, likely in the moderate range. Adjustment disorder with anxious mood. RECOMMENDATIONS: Followup neuropsychological assessment approximately 1 month post-discharge to clarify cognitive status. Compensatory strategies to address cognitive deficit. The use of relaxation techniques will also help manage anxiety. Educating the patient on his deficits along with ways in which he can compensate will help his overall adjustment. Family education will also be helpful to assist with environmental modifications to ensure safety upon discharge. [address] [address] CONSULTATION Name: DULCE SUH Room #: 516-1 ADM IN M.R.#: [id number] Admission: 11/08/20 Attend Phys: Efren Harding MD Discharge: Date of : 60 Report #: [id number] Thank you very much for allowing me to provide the consultation on this patient. <ELECTRONICALLY SIGNED> By: Dino Krause, PhD 11/14/20 1025 2001 2304 Dino Krause, PhD /nt
--- NOTE | 2020-11-14 12:55 | NUR ---
team meeting, reccommendation: outpt neuro pysch 2 months after dc. moderate cog/memory deff. diet mech soft chopped thin liquids. will need assist with pills and bills. supervison touch for dressing. dc 3/5 hh (pt, ot, st, nursing), no dme. to come in with trainning with therapy. outpt neuro pysch post d. no driving or working untill cleared by PCP. will cont following as needed for dc needs.
--- NOTE | 2020-11-14 18:21 | NUR ---
ASSUMED PATIENT CARE AT 0700. A/O X4. WORK WITH PT/OT/ST. TOLERATED DAILYSIS. NO DISDRTESS NOTED SLOWLY TOWARDS POC GOALS.
[2020-11-14 19:25] VITALS: BP 98/62
--- NOTE | 2020-11-15 05:06 | NUR ---
ASSESSMENT: PT SLEPT ALL NIGHT, DENIES PAIN, SOB AND N/V. VSS, AFEBRILE. TOLERATING PO INTAKE. TO COME FOR TRAINING ON FRIDAY, POSSIBLE DC TO HOME ON FRIDAY. GOOD PROGRESS TOWARDS DC GOALS, WILL CONTINUE TO MONITOR.
[2020-11-15 06:02] LABS: ALBUMIN 2.2 g/dL (3.4-5.0); CALCIUM 7.6 mg/dL (8.5-10.1); POTASSIUM 3.1 mmol/L (3.5-5.1)
[2020-11-15 06:05] LABS: CREATININE 6.5 mg/dL (0.7-1.3)
[2020-11-15 07:25] VITALS: BP 95/62
--- NOTE | 2020-11-15 18:08 | NUR ---
ASSUMED CARE AT 0700. ALERT AND ORIENTATED. DENIES ANY PAIN. UP INDEPENDENTLY WITH SBA. APPETITE GOOD. HAD A BM TODAY. DIURESING ADEQ. PARTICIPATING WITH THERAPY AND PROGRESSING TOWARDS GOAL. MEDS TAKEN WITHOUT DIFFICULTY. PLAN FOR DC HOME ON FRIDAY.
[2020-11-15 19:55] VITALS: BP 99/63
--- NOTE | 2020-11-16 04:57 | NUR ---
assessment as charted, sophia to r chest for dialysis, plan to hold dialysis in am and schedule it friday before he goes home, prefers meds crushed in applesauce, clonidine held for sbp < 110, no c/o pain, slept in bed thru the noc, will con't to monitor per ppoc.
[2020-11-16 07:54] VITALS: BP 124/68
--- NOTE | 2020-11-16 13:00 | NUR ---
ASSUMED CARE AT 0700. ALERT AND ORIENTATED. SLEPT FAIRLY WELL LAST NIGHT. DENIES ANY PAIN. UP WITH SBA ASSIST IN THE ROOM. APPETITE GOOD. LAST BM 11/15. CAME IN FOR FAMILY TRAINING. DIURESING. PARTICIPATING WITH THERAPY AND PROGRESSING TOWARDS GOAL. PLAN FOR DC HOME TOMORROW. PLAN FOR HD TOMORROW AM PRIOR TO DC HOME.
--- NOTE | 2020-11-16 13:38 | NUR ---
RD visited with pt per pt request. Pt states that he just found out he cannot eat any bananas and needed a replacement. Pt has been started on HD and is on renal diet. Provided potassium handout from [employer] [facility] [facility] and discussed high/low potassium foods and alternatives to bananas. Pt also with questions related to being borderline diabetic. Provided carb counting handout and discussed following a consistent carb diet to aid in good BG control. All questions were answered at this time and pt verbalized understanding.
--- NOTE | 2020-11-16 13:57 | NUR ---
cm visited with yovanny and his at bedside, cm cont to wear face shield and mask during visit. had mask on as well. pt set up for [facility] MWF at 1115, 1st tx on 11/20/20, need to arrive 15min early. bring insurance card, id, list current medication and blanket , referral to be [facility]. will be here tomorrow between 1-2 pm for dc.
[2020-11-16 14:00] VITALS: BP 124/68
--- NOTE | 2020-11-16 16:54 | NUR ---
FAXED REFERRAL TO [facility] SPOKE WITH JAVON IN INTAKE SHE RECEIVED REFERRAL AND WILL ACCEPT AT [place] 11/17.
--- NOTE | 2020-11-16 17:02 | NUR ---
FAXED REFERRAL TO [facility] HH RECEIVED CONFIRMATION WILL F/U WITH JAVON IN INTAKE ON TOMORROW AM.
[2020-11-16 20:29] VITALS: BP 113/73
--- NOTE | 2020-11-17 03:41 | NUR ---
pt alert and oriented x4, appropriate and cooperative. pt stated he was looking forward to being discharged. pt took hs meds with water tolerating well. pt appears to be sleeping soundly. bed alarm on and call light in reach. will continue to monitor.
[2020-11-17 06:32] VITALS: BP 117/76
[2020-11-17 14:09] VITALS: BP 94/61
[2020-11-17 14:10] VITALS: BP 105/68
[2020-11-17] MEDS ORDERED: HOME MEDICATION PO (14:56)
[2020-11-17 15:09] VITALS: BP 124/68
--- NOTE | 2020-11-17 15:20 | NUR ---
FAXED DISCHARGE SUMMARY AND FLOW SHEETS TO [facility]. WILL CONFIRM THEY RECEIVED AND ADVISED OF PATIENT'S DISCHARGE. [facility] P [phone]; FAX [phone]
--- NOTE | 2020-11-17 16:26 | NUR ---
Alert and orientated X3. Receiving dialysis at this time. Calm, cooperative and compliant. Breath sounds clear. Reg HR auscultated . Color pale pink with brisk capillary refill and palpable peripheral pulses. Double lumen L subclavian Tesio being used for dialysis, site soft and flat without s/o infection. No urine passed this shift prior to discharge. Active bowel sounds over soft, rounded abdomen. Dressing removed from R neck, no s/o wound. Discharge orders obtained, Dr. Hilliard notified X2 for discharge meds. Pt discharged with at 1539 per WC with REAL ESTATE TRANSACTION MANAGER. No s/o distress.
--- NOTE | 2020-11-18 13:16 | NUR ---
PT DISCHARGED YESTERDAY 11/17 TO [facility] DC ORDERS NOT DONE PRIOR TO SW LEAVING SO FAXED DC ORDERS/SUMMARY TODAY 11/18 SPOKE WITH JAVON IN INTAKE SHE RECEIVED ORDERS AND WILL ARRANGE VISITS WITH PT,
--- NOTE | 2020-11-20 10:42 | NUR ---
received message from pt and family with question about medication?. cm called pt back, left message requesting call back and passed on information to md.
== END 2020-11-17 15:35 | disposition home health service (06) | DRG 91 ==
PROVIDERS: Hospitalist; Internal Medicine Nephrology; Nurse Practitioner Family; ADMIT Physical Medicine & Rehabilitation; ATTEND Physical Medicine & Rehabilitation
PROC: 5A1D70Z Performance of Urinary Filtration, Intermittent, Less than 6 Hours Per Day (ICD-10-PCS; principal; 2020-11-11)
PROC: 5A1D70Z Performance of Urinary Filtration, Intermittent, Less than 6 Hours Per Day (ICD-10-PCS; 2020-11-17)
DX: G92 Toxic encephalopathy (principal); K85.90 Acute pancreatitis without necrosis or infection, unspecified; N18.6 End stage renal disease; J96.00 Acute respiratory failure, unspecified whether with hypoxia or hypercapnia; I12.0 Hypertensive chronic kidney disease with stage 5 chronic kidney disease or end stage renal disease; E46 Unspecified protein-calorie malnutrition; N17.9 Acute kidney failure, unspecified; D84.821 Immunodeficiency due to drugs; R53.81 Other malaise; E78.5 Hyperlipidemia, unspecified; R41.9 Unspecified symptoms and signs involving cognitive functions and awareness; F43.22 Adjustment disorder with anxiety; E03.9 Hypothyroidism, unspecified; B37.9 Candidiasis, unspecified; T45.1X5A Adverse effect of antineoplastic and immunosuppressive drugs, initial encounter; R41.0 Disorientation, unspecified; K12.30 Oral mucositis (ulcerative), unspecified; I95.9 Hypotension, unspecified; E87.6 Hypokalemia; Z88.8 Allergy status to other drugs, medicaments and biological substances; Z79.899 Other long term (current) drug therapy; Z86.16 Personal history of COVID-19; Z68.29 Body mass index [BMI] 29.0-29.9, adult; Z91.040 Latex allergy status; Z79.82 Long term (current) use of aspirin; Y92.89 Other specified places as the place of occurrence of the external cause
CPT/HCPCS: 10112; 32100

== ENCOUNTER 2020-11-22 10:12 | Inpatient (IN) | payer BC, OTHER ==
[~2020-11-22] VITALS: Ht 182.9 cm; Wt 98.4 kg
[2020-11-22] VITALS (7 sets, daily range): BP systolic 107–128; BP diastolic 56–80
[~2020-11-22 10:12] MED LIST changes: +HOME MEDICATION PO
--- NOTE | 2020-11-22 10:53 | NUR ---
IV TEAM CONTACTED TO ASSIST WITH GETTING LINE GOING.
[2020-11-22 12:24] LABS: ABSOLUTE NEUTROPHILS 2.5 thou/uL (1.4-8.2); EOSINOPHILS 4.3 % (0.0-3.0); HEMOGLOBIN 6.8 gm/dL (14.0-18.0); WBC 3.7 thou/uL (4.0-11.0)
[2020-11-22 12:26] LABS: BASOPHILS 0.6 % (0.0-2.0); HEMATOCRIT 20.2 % (42.0-52.0); LYMPHOCYTES 14.4 % (24.0-44.0); MCH 31.9 pg (26.0-34.0); MCHC 33.8 g/dL (28.0-37.0); MCV 94.3 fL (80.0-100.0); MONOCYTES 12.1 % (1.0-8.0); PLATELET COUNT 320 thou/uL (150-400); POLYS 68.6 % (36.0-66.0); RBC 2.14 mil/uL (4.50-6.00); RDW 15.4 % (10.5-14.5)
[2020-11-22 12:36] LABS: ANION GAP 10 mmol/L (7-16); BUN 30 mg/dL (7-18); CHLORIDE 98 mmol/L (98-107); CO2 27 mmol/L (21-32); CREATININE 6.7 mg/dL (0.7-1.3); GLUCOSE 105 mg/dL (74-106); POTASSIUM 3.1 mmol/L (3.5-5.1); SODIUM 135 mmol/L (136-145)
[2020-11-22 12:46] LABS: ALBUMIN 2.8 g/dL (3.4-5.0); SGOT 22 U/L (15-37); SGPT 41 U/L (16-63); TOTAL BILIRUBIN 0.6 mg/dL (0.2-1.0); TOTAL PROTEIN 5.9 g/dL (6.4-8.2); TROPONIN-I <0.06 ng/mL (<0.06)
--- NOTE | 2020-11-22 18:47 | NUR ---
ASSUMED CARE OF PT AT APPROX 1715 FROM ER D/T ANEMIA AND HYPOTENSION. ORIENTED PT TO ROOM AND SETTLE HIM INTO ROOM. NO C/O PAIN OR DISTRESS. REPORTS FEELING A BIT WEAK. ADMISSION COMPLETE. BLOOD TRANSFUSION STARTED. WILL CONTINUE TO MONITOR FOR CHANGES AND FOLLOW POC.
--- NOTE | 2020-11-22 19:45 | NUR ---
PER REPORT FROM DAY SHIFT NURSE, Nephrology only wants pt to have one unit packed cells at this time
[2020-11-23 03:17] VITALS: BP 121/67
[2020-11-23 05:39] LABS: CALCIUM 7.7 mg/dL (8.5-10.1); CREATININE 7.6 mg/dL (0.7-1.3); HEMOGLOBIN 7.8 gm/dL (14.0-18.0); MCH 32.1 pg (26.0-34.0); MCV 94.2 fL (80.0-100.0); POTASSIUM 3.2 mmol/L (3.5-5.1); RBC 2.44 mil/uL (4.50-6.00); RDW 15.5 % (10.5-14.5); WBC 3.3 thou/uL (4.0-11.0)
--- NOTE | 2020-11-23 06:55 | EKG ---
[address] [address] ELECTROCARDIOGRAM REPORT Name: DULCE SUH Room #: 208-P ADM IN M.R.#: [id number] Admission: 11/22/20 Attend Phys: Chino Hilliard MD, FAAF Discharge: Date of : 60 Report #: [id number] [facility] ED Test Date: 2020-11-22 Test Time: 10:30:09 Pat Name: DULCE SUH Department: Room: 208 Gender: M Power System Dispatcher: CHARLY : 1960 Requested By: Efren Cavazos Order Number: [id number] MD: Chris Powers Measurements Intervals [place] Rate: 90 P: MA: QRS: -27 QRSD: 99 T: 35 QT: 382 QTc: 468 Interpretive Statements Artifact, suspect NSR Abnormal R-wave progression, late transition Left ventricular hypertrophy Compared to ECG 10/26/2020 12:27:02 Left ventricular hypertrophy now present Sinus tachycardia no longer present Intraventricular conduction delay no longer present Myocardial infarct finding no longer present Electronically Signed On 11-23-2020 6:55:15 [employer]ERCIAL LIGHT FIXTURE ASSEMBLER by Chris Powers [email or web address] <ELECTRONICALLY SIGNED> By: Chris Powers MD, FACC 11/23/20 0655 1030 1030 Chris Powers MD, [facility] /EPI
[2020-11-23 07:56] VITALS: BP 117/75
--- NOTE | 2020-11-23 10:00 | NUR ---
chart review. unable to visit with yovanny rt resting. he dcp last week from acute rehab [facility] M[facility]. pcp dr koenig. he missed dialysis rt not feeling well and weakness. has low bp and hgb. possible will dc home today and resume hh and outpt dialysis. 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 noted he had covid in sep. will cont following as needed for dc needs. cm tried to speak with yovanny x 2, unable to getting tx and resting.
--- NOTE | 2020-11-23 11:48 | NUR ---
FAXED REFERRAL FOR RESUMPTION OF CARE TO [facility] HH SPOKE WITH JAVON SHE RECEIVED REFERRAL AND WILL RESUME CARE AT [place].
[2020-11-23 14:21] VITALS: BP 117/75
[2020-11-23 15:04] VITALS: BP 120/73
[2020-11-23 17:15] VITALS: BP 117/75
--- NOTE | 2020-11-23 17:40 | NUR ---
ASSUMED CARE SHIFT [place]. ASSESSMENT CHARTED. VSS. DENIES PAIN. BP STABLE. DENIES DIZZINESS. PT UP X1 TOLERATING WELL. DC ORDERS ACKNOWLEDGED. DISCUSSED WITH PT AND SPOUSE. IV REMOVED. TELE REMOVED. PT LEAVING UNIT WITH ALL BELONGINGS.
== END 2020-11-23 17:46 | disposition home health service (06) | DRG 312 ==
LOC: ER 10:12 → EROBS 13:52 → 2N 13:52
PROVIDERS: Emergency Medicine; ADMIT Family Medicine; ATTEND Family Medicine
PROC: 30233N1 Transfusion of Nonautologous Red Blood Cells into Peripheral Vein, Percutaneous Approach (ICD-10-PCS; principal; 2020-11-22)
DX: I95.1 Orthostatic hypotension (principal); N18.6 End stage renal disease; I12.0 Hypertensive chronic kidney disease with stage 5 chronic kidney disease or end stage renal disease; E78.5 Hyperlipidemia, unspecified; E03.9 Hypothyroidism, unspecified; K59.00 Constipation, unspecified; D64.9 Anemia, unspecified; Z88.8 Allergy status to other drugs, medicaments and biological substances; Z91.040 Latex allergy status; Z86.16 Personal history of COVID-19; Z99.2 Dependence on renal dialysis
CPT/HCPCS: 10081

== ENCOUNTER 2020-12-20 23:04 | Inpatient (IN) | payer BC, OTHER ==
[~2020-12-20] VITALS: Ht 182.9 cm; Wt 96.2 kg
--- NOTE | ~2020-12-20 | HC ---
[facility] [place] [address] CONSULTATION Name: DULCE SUH Room #: 457-P ADM IN M.R.#: [id number] Admission: 12/21/20 Attend Phys: Chino Hilliard MD, FAAF Discharge: Date of : 60 Report #: [id number] THIS REPORT FOR: cc: Chino Hilliard MD FAA FACE Chino Hilliard MD FAA FACEP Jerica Ryder MD ~ REASON FOR CONSULTATION: End-stage renal disease. REASON FOR THE PRESENTATION: Chest pain and discomfort. HISTORY OF PRESENT ILLNESS: A 60-year-old with history of membranous nephropathy, COVID-19 infection after which he was initiated on dialysis. He dialyzes every Friday, Friday and Friday. He used to be on chronic immunosuppressive therapy, medications including cyclosporine and Rituxan. He had his usual hemodialysis yesterday. He presented with central chest pain with radiation to his neck associated with numbness of both extremities. No prior similar episodes. No nausea or vomiting. No relieving or aggravating factor. He was recently admitted with hypotension and was taken off the losartan. The patient decided to come to the hospital for further evaluation and management. PAST MEDICAL HISTORY: 1. Acute kidney injury. 2. Chronic kidney disease with a baseline creatinine of around 3.5 with repeated episodes of acute kidney injury leading to initiation of dialysis. 3. Hyperlipidemia. 4. Hypothyroidism. 5. Chronic kidney disease. 6. Membranous nephropathy. 7. Kidney biopsy x2. 8. COVID-19. 9. Recent IJ tunneled catheter. MEDICATIONS: Levothyroxine and torsemide. ALLERGIES: LATEX AND ATORVASTATIN. SOCIAL HISTORY: No drug or alcohol abuse. Lives with his . REVIEW OF SYSTEMS: GENERAL: No fever or chills. CARDIOVASCULAR: As per the history of present illness. PULMONARY: No cough or hemoptysis. GASTROINTESTINAL: No nausea or vomiting. GENITOURINARY: He started to make significant amount of urine. No frequency, no urgency. MUSCULOSKELETAL: Occasional myalgias. [facility] [address] [place] [address] CONSULTATION Name: DULCE SUH Room #: 457-[facility] IN M.R.#: [id number] Admission: 12/21/20 Attend Phys: Chino Hilliard MD, FAAF Discharge: Date of : 60 Report #: [id number] NEUROLOGICAL: No headache, no dizziness. PHYSICAL EXAMINATION: GENERAL: He is awake, alert, and oriented. VITAL SIGNS: Temperature 36.9, pulse rate is 60, respiratory rate is 18, blood pressure is 111/77. HEAD AND NECK: No jugular venous distention, no bruit, no thyromegaly. CHEST: No crackles. CARDIOVASCULAR: No rub detected. ABDOMEN: Soft, nontender. EXTREMITIES: Lower extremities, no edema. LABORATORY VALUES: Hemoglobin is 10.8. Sodium is 137, potassium is 3.5, BUN is 16, creatinine is 3.3. IMPRESSION AND PLAN: 1. Chest pain of unknown source. 2. Chronic kidney disease with a baseline creatinine of around 3.5. 3. Hypertension. 4. Acute kidney injury, dialysis dependent. 5. History of membranous nephropathy, requiring long-term immunosuppressive medications including cyclosporine and Rituxan. 6. The patient's renal function implied that he receive dialysis yesterday; however, the levels are very acceptable for a dialysis patient. He began to have significant urine output and I expect that he partially recovered his kidney function. With that being in mind, I would like to hold his dialysis and monitor his kidney function. Unfortunately, he received a CT angiogram yesterday, which would have an impact on his renal function. 7. We will monitor his electrolytes, urine output, and renal function. 8. We will wait for the Cardiology input regarding his chest pain. I would like to be as conservative as possible with the usage in this patient given the fact that he might be recovering part of his kidney function to avoid a second dye load. 9. Blood pressure seems to be under well control. 10. We will continue to follow. By: [id number] Jerica Ryder MD /charlie
[2020-12-20 23:27] VITALS: BP 132/59
[2020-12-21] VITALS (9 sets, daily range): BP systolic 111–124; BP diastolic 67–83
[2020-12-21 00:42] LABS: ABSOLUTE NEUTROPHILS 3.9 thou/uL (1.4-8.2); BASOPHILS 2.2 % (0.0-2.0); EOSINOPHILS 4.9 % (0.0-3.0); HEMATOCRIT 32.1 % (42.0-52.0); HEMOGLOBIN 10.8 gm/dL (14.0-18.0); LYMPHOCYTES 18.1 % (24.0-44.0); MCH 32.6 pg (26.0-34.0); MCHC 33.8 g/dL (28.0-37.0); MCV 96.4 fL (80.0-100.0); PLATELET COUNT 384 thou/uL (150-400); POLYS 62.8 % (36.0-66.0); RBC 3.33 mil/uL (4.50-6.00); RDW 16.9 % (10.5-14.5); WBC 6.2 thou/uL (4.0-11.0)
[2020-12-21 00:47] LABS: ANION GAP 6 mmol/L (7-16); BUN 16 mg/dL (7-18); CALCIUM 8.5 mg/dL (8.5-10.1); CHLORIDE 101 mmol/L (98-107); CO2 30 mmol/L (21-32); CREATININE 3.3 mg/dL (0.7-1.3); GLUCOSE 115 mg/dL (74-106); POTASSIUM 3.5 mmol/L (3.5-5.1); SODIUM 137 mmol/L (136-145)
[2020-12-21 00:58] LABS: ALBUMIN 3.4 g/dL (3.4-5.0); SGOT 24 U/L (15-37); SGPT 24 U/L (30-65); TOTAL BILIRUBIN 0.4 mg/dL (0.2-1.0); TOTAL PROTEIN 6.4 g/dL (6.4-8.2); TROPONIN-I <0.06 ng/mL (<0.06)
--- NOTE | 2020-12-21 05:34 | NUR ---
PT WAS ADMITTED TO THE UNIT AT APPROXIMATELY 0335. PT IS A/O X4 AND IS UP AD CATRACHITO. VSS. AFEBRILE. DENIES C/O PAIN OR DISCOMFORT AT THIS TIME. ADMISSION IS COMPLETED. PT EDUCATED ON USE OF CALL LIGHT. CALL LIGHT IS WITHIN REACH. WILL CONTINUE TO [facility].
--- NOTE | 2020-12-21 07:02 | EKG ---
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 : 1960 Requested By: Orlin Velez Order Number: [id number] MD: Chris Powers Measurements Intervals [place] Rate: 78 P: 10 FL: 165 QRS: -47 QRSD: 102 T: 29 QT: 422 QTc: 481 Interpretive Statements Sinus rhythm Left anterior fascicular block Borderline prolonged QT interval Baseline wander in lead(s) V2 Compared to ECG 11/22/2020 10:30:09 Left anterior fascicular block now present Left ventricular hypertrophy no longer present Electronically Signed On 12-21-2020 7:02:33 CDT by Chris Powers [email or web address] <ELECTRONICALLY SIGNED> By: Chris Powers MD, [facility] 12/21/20701 231 11 Chris Powers MD, [facility] /EPI
--- NOTE | 2020-12-21 11:52 | 2DMMODE ---
[facility] [place] [address] 2 D/M-MODE ECHOCARDIOGRAM Name: DULCE SUH Room #: 457-P ADM IN M.R.#: [id number] Admission: 12/21/20 Attend Phys: Chino Hilliard MD, FAAF Discharge: Date of : 60 Report #: [id number] THIS REPORT FOR: cc: Chino Hilliard MD, FAAFP FACE Chino Hilliard MD, FAAFP FACEChris Kimball MD [facility] ~ APPROVED REPORT Study performed: 12/21/2020 10:50:33 EXAM: Comprehensive 2D, Doppler, and color-flow Echocardiogram Patient Location: Echo lab Room #: 457 Status: routine BSA: 2.18 HR: 60 bpm BP: 111/77 mmHg Rhythm: NSR Other Information Study Quality: Good Indications Chest Pain Hx: HTN, HLP, COVID-19, ESRD 2D Dimensions RVDd: 39.75 mm IVSd: 10.39 (7-11mm) LVOT Diam: 20.07 (18-24mm) LVDd: 59.76 mm PWd: 10.86 (7-11mm) Ascending Ao: 30.98 (22-36mm) LVDs: 25.73 (25-40mm) Aortic Root: 33.22 mm Volumes Left Atrial Volume (Systole) Single Plane 4CH: 51.85 mL Single Plane 2CH: 67.25 mL LA ESV Index: 29.00 mL/m2 Aortic Valve AoV Peak Gorge.: 1.17 m/s AO Peak Gr.: 5.51 mmHg LVOT Max P.10 mmHg LVOT Max V: 0.88 m/s MONI Vmax: 2.37 cm2 [facility] [address] [place] [address] 2 D/M-MODE ECHOCARDIOGRAM Name: HAWAANISADULCE Room #: 457-P [facility]#: [id number] Admission: 12/21/20 Attend Phys: Chino Hilliard MD, Discharge: Date of : 60 Report #: [id number] Mitral Valve E/A Ratio: 1.4 MV Decel. Time: 230.99 ms MV E Max Gorge.: 0.76 m/s MV A Gorge.: 0.53 m/s MV PHT: 66.99 ms IVRT: 78.43 ms Pulmonary Valve PV Peak Gorge.: 1.05 m/s PV Peak Gr.: 4.42 mmHg Pulmonary Vein P Vein S: 0.49 m/s P Vein A: 0.29 m/s P Vein D: 0.39 m/s P Vein A Dur.: 129.2 msec P Vein S/D Ratio: 1.26 Tricuspid Valve RAP Estimate: 5.00 mmHg Left Ventricle The left ventricle is normal size. There is normal LV segmental wall motion. There is normal left ventricular wall thickness. The left ventricular systolic function is normal. LVEF is 50%. Moderate diastolic dysfunction. Right Ventricle The right ventricle is normal size. The right ventricular systolic function is normal. Atria Left atrium is mildly dilated. Right atrium is borderline dilated. Aortic Valve The aortic valve is normal in structure. No aortic regurgitation is present. There is no aortic valvular stenosis. Mitral Valve The mitral valve is normal in structure. Trace mitral regurgitation. No evidence of mitral valve stenosis. Tricuspid Valve The tricuspid valve is normal in structure. There is no tricuspid valve regurgitation noted. Unable to assess PA pressure. [facility] [place] [address] [place] [address] 2 D/M-MODE ECHOCARDIOGRAM Name: DULCE SUH Room #: 457-P ADM IN M.R.#: [id number] Admission: 12/21/20 Attend Phys: Chino Hilliard MD, Discharge: Date of : 60 Report #: [id number] Pulmonic Valve The pulmonary valve is normal in structure. There is no pulmonic valvular regurgitation. Great Vessels The aortic root is normal in size. The ascending aorta is normal in size. IVC is normal in size and collapses >50% with inspiration. Pericardium There is no pericardial effusion. There is no pleural effusion. <Conclusion> Normal left ventricular size/wall thickness Ejection fraction 60% Normal right ventricular size/function Mild biatrial enlargement Color-flow Doppler study was performed of the aortic/mitral/tricuspid/pulmonary valve Normal aortic/mitral valve structure and function No tricuspid valve insufficiency detected Normal aortic root size No pericardial effusion <ELECTRONICALLY SIGNED> By: Chris Powers MD, FACC 12/21/20 115 51 51 Chris Powers MD, FACC /INF
--- NOTE | 2020-12-21 12:36 | NUR ---
PT ADMITTED RELATED TO CHEST PAIN,ESRD,RENAL MASS. CM REVIEWED CHART AND SPOKE WITH CARE TEAM. CM MET WITH PT AT BEDSIDE THIS DAY. PT APPEARED TO BE A&O X4. CM ROLE INTRODUCED. PT INDICATED HE LIVES IN A HOUSE WITH HIS SPOUSE WITH NO STEPS TO ENTER AND 3 STEPS INSIDE. 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 PT WAS STILL GETTING HH NURSING [facility]. PT DOES OP HD AT [facility] M,W,F 11-3. PT TO HAVE ECHO AND STRESS TEST THIS DAY. CM FOLLOWING REGARDING DC PLANNING.
--- NOTE | 2020-12-21 16:11 | NUR ---
NO CHEST PAIN THIS SHIFT. ECHO AND NUCLEAR STRESS TEST UNREMARKABLE. VSS, TROPONINS -. WAITING FOR DR. PEPPER THIS AFTERNOON TO SEE PATIENT AND DECIDE ON DISCHARGE.
--- NOTE | 2020-12-21 21:14 | NUR ---
PT DISCHARGED IN CARE OF , KUNAL; DISCHARGE PAPERWORK GIVEN.
== END 2020-12-21 21:00 | disposition home or self-care (01) | DRG 683 ==
LOC: ER 23:04 → 4W 12-21 02:17 → EROBS 12-21 02:17 → 4W 12-21 03:27
PROVIDERS: Emergency Medicine; ADMIT Family Medicine; ATTEND Family Medicine
DX: N17.9 Acute kidney failure, unspecified (principal); I12.0 Hypertensive chronic kidney disease with stage 5 chronic kidney disease or end stage renal disease; R07.9 Chest pain, unspecified; N18.6 End stage renal disease; E78.5 Hyperlipidemia, unspecified; E03.9 Hypothyroidism, unspecified; K59.00 Constipation, unspecified; D64.9 Anemia, unspecified; Z88.8 Allergy status to other drugs, medicaments and biological substances; Z91.040 Latex allergy status; Z86.16 Personal history of COVID-19; Z79.82 Long term (current) use of aspirin; Z79.899 Other long term (current) drug therapy; Z99.2 Dependence on renal dialysis
CPT/HCPCS: 10045